=== PATIENT | female | born 1945 | race Caucasian/White ===

== ENCOUNTER → 2021-05-12 12:27 | Outpatient (CLI) | payer MEDICARE, SELFPAY | PROVIDERS: PCP Family Medicine; Visit Provider Nurse Practitioner | DX: Z20.822 Contact with and (suspected) exposure to COVID-19 (principal) | CPT/HCPCS: C9803; U0003; U0005 ==

== ENCOUNTER → 2021-07-10 12:46 | Outpatient (CLI) | payer MEDICARE, SELFPAY | PROVIDERS: PCP Anesthesiology; Visit Provider Nurse Practitioner | DX: Z20.822 Contact with and (suspected) exposure to COVID-19 (principal) | CPT/HCPCS: C9803; U0003; U0005 ==

== ENCOUNTER 2022-10-02 07:33 | Day surgery (SDC) | payer MEDICARE, SELFPAY ==
[2022-10-01 11:19] VITALS: BMI 23.0
[2022-10-02] VITALS (8 sets, daily range): BP systolic 106–151; BP diastolic 57–80; PULSE 70–81; RESP 17–18; TEMP 36.3–36.7; O2SAT 95–100
== END 2022-10-02 09:43 | disposition home or self-care (01) ==
PROVIDERS: PCP Anesthesiology; Visit Provider Ophthalmology
DX: H25.813 Combined forms of age-related cataract, bilateral (principal); Z79.899 Other long term (current) drug therapy
CPT/HCPCS: 66984; V2632

== ENCOUNTER 2022-10-16 08:27 | Day surgery (SDC) | payer MEDICARE, SELFPAY ==
[2022-10-12 13:58] VITALS: BMI 23.0
[2022-10-16 09:14] VITALS: BP 159/81; PULSE 70; RESP 18; TEMP 36.2; O2SAT 95
[2022-10-16 10:10] VITALS: BP 176/73; PULSE 67; RESP 17; O2SAT 99
[2022-10-16 10:15] VITALS: BP 152/67; PULSE 68; RESP 17; O2SAT 100
[2022-10-16 10:20] VITALS: BP 139/57; PULSE 65; RESP 17; O2SAT 100
[2022-10-16 10:25] VITALS: BP 126/93; PULSE 72; RESP 16; TEMP 36.3; O2SAT 98
[2022-10-16 10:37] VITALS: BP 126/93; PULSE 72; RESP 16; TEMP 36.3; O2SAT 98
== END 2022-10-16 10:37 | disposition home or self-care (01) ==
PROVIDERS: PCP Family Medicine; Visit Provider Ophthalmology
DX: H25.812 Combined forms of age-related cataract, left eye (principal); Z79.899 Other long term (current) drug therapy
CPT/HCPCS: 66984; V2632

== ENCOUNTER 2023-04-26 09:00 | Outpatient (RCR) | payer MEDICARE, SELFPAY | END 2023-04-26 09:05 | disposition home or self-care (01) | LOC: PT 09:00 | PROVIDERS: PCP Family Medicine; Visit Provider Family Medicine | DX: M40.209 Unspecified kyphosis, site unspecified (principal); M25.551 Pain in right hip; M25.552 Pain in left hip; M25.561 Pain in right knee; M25.562 Pain in left knee; M25.511 Pain in right shoulder; M25.512 Pain in left shoulder | CPT/HCPCS: 97110; 97163; 97530 ==

== ENCOUNTER 2024-06-12 07:44 | Outpatient (CLI) | payer MEDICARE, SELFPAY ==
[2024-06-12 08:45] VITALS: PULSE 70; PULSE 73
[2024-06-12] MEDS: ALBUTEROL 0.083% 2.5 MG/3 ML NEB IH (08:45)
[2024-06-12 09:40] LABS: Basophils # 0.1 K/mm3 (0-0.2); Basophils % 0.6 % (0.1-2.0); Eosinophils # 0.1 K/mm3 (0.0-0.4); Eosinophils % 1.2 % (0.1-12.0); Hematocrit 39.4 % (37.0-47.0); Hemoglobin 13.3 g/dL (12.2-16.2); Lymphocytes # 2.7 K/mm3 (0.7-4.5); Lymphocytes % 35.1 % (10-50); Mean Corpuscular HGB Conc 33.9 g/dL (31.8-35.4); Mean Corpuscular Hemoglobin 30.9 pg (27.0-31.2); Mean Corpuscular Volume 91.3 fl (81-99); Mean Platelet Volume 7.3 fl (7.4-10.4); Monocytes # 0.6 K/mm3 (0.1-1.0); Monocytes % 8.1 % (1.7-9.3); Neutrophils # 4.3 K/mm3 (1.8-7.8); Neutrophils % 54.9 % (37.0-80.0); Platelet Count 218 K/mm3 (142-424); Red Blood Count 4.31 M/mm3 (4.20-5.40); Red Cell Distribution Width 14.4 % (11.5-17.5); White Blood Count 7.8 K/mm3 (4.8-10.8)
[2024-06-19 04:06] LABS: D001-IgE D pteronyssinus 6.99 kU/L (Class IV); D002-IgE D farinae 4.72 kU/L (Class IV); E001-IgE Cat Dander <0.10 kU/L (Class 0); E005-IgE Dog Dander <0.10 kU/L (Class 0); E072-IgE Mouse Urine <0.10 kU/L (Class 0); G002-IgE Bermuda Grass <0.10 kU/L (Class 0); G006-IgE Timothy Grass 0.16 kU/L (Class 0/I); I006-IgE Cockroach, German <0.10 kU/L (Class 0); Immunoglobulin E, Total 150 IU/mL (6-495); M001-IgE Penicillium chrysogen <0.10 kU/L (Class 0); M002-IgE Cladosporium herbarum <0.10 kU/L (Class 0); M003-IgE Aspergillus fumigatus <0.10 kU/L (Class 0); M006-IgE Alternaria alternata <0.10 kU/L (Class 0); T001-IgE Maple/Box Elder <0.10 kU/L (Class 0); T003-IgE Common Silver Birch <0.10 kU/L (Class 0); T006-IgE Cedar, Mountain <0.10 kU/L (Class 0); T007-IgE Oak, White <0.10 kU/L (Class 0); T008-IgE Elm, American <0.10 kU/L (Class 0); T010-IgE Walnut <0.10 kU/L (Class 0); T011-IgE Maple Leaf Sycamore <0.10 kU/L (Class 0); T014-IgE Cottonwood <0.10 kU/L (Class 0); T015-IgE Ash, White <0.10 kU/L (Class 0); T022-IgE Pecan, Hickory 0.19 kU/L (Class 0/I); T070-IgE White Mulberry <0.10 kU/L (Class 0); W001-IgE Ragweed, Short <0.10 kU/L (Class 0); W011-IgE Thistle, Russian <0.10 kU/L (Class 0); W014-IgE Pigweed, Common <0.10 kU/L (Class 0); W018-IgE Sheep Sorrel <0.10 kU/L (Class 0)
== END 2024-06-12 23:59 | disposition home or self-care (01) ==
LOC: RT 07:46
PROVIDERS: PCP Family Medicine; Visit Provider Internal Medicine Pulmonary Disease
DX: R06.09 Other forms of dyspnea (principal); J30.9 Allergic rhinitis, unspecified
CPT/HCPCS: 36415; 82785; 85025; 86003; 94060; 94618; 94640; 94726; 94729; J7613

== ENCOUNTER 2025-02-22 10:50 | Outpatient (POV) | payer MEDICARE, SELFPAY ==
--- OUTSIDE RECORDS SUMMARY | 2025-02-09 16:15 | XMS_ITS | Encounter Summary ---
Author Organization Healthcare Address [address] 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 Discharge Disposition: Home or Self Care Social History Tobacco Use Types Packs/Day Years Used Date Smoking Tobacco: Never Smokeless Tobacco: Never Alcohol Use Standard Drinks/Week Comments Yes 0 (1 standard drink = 0.6 oz pur e alcohol) Every couple of months PHQ-2 Answer Date Recorded Patient Health Questionnaire-2 Score 0 01/07/2024 PHQ-2A Answer Date Recorded Patient Health Questionnaire-2 Score 1 07/09/2023 Comments Unknown Sex and Gender Information Value Date Recorded Sex Assigned at Not on file Legal Sex Female 7:52 PM EDT Gender Identity Not on file Sexual Orientation Not on file documented as of this encounter Medications at Time of Discharge Airsupra 90-80 MCG/ACT aerosol INHALE 2 PUFFS THREE TIMES DAILY NEEDED 08/30/2023 albuterol 108 (90 Base) MCG/ACT inhaler INHALE 1 PUFF EVERY 4 HOURS NEEDED. 07/04/2017 amitriptyline (Elavil) 10 MG tablet Amitriptyline HCl 10 MG Oral Tablet QTY: 90 tablet Days: 90 Refills: 0 Written: 09/22/24 Patient Instructions: 09/22/2024 Arnuity Ellipta 200 MCG/ACT aerosol powder Inhale 1 puff 1 (one) time each day. 06/22/2023 atorvastatin (Lipitor) 20 MG tablet Atorvastatin Calcium 20 MG Oral Tablet QTY: 90 tablet Days: 90 Refills: 0 Written: 10/10/24 Patient Instructions: 10/10/2024 Budeson-Glycopyr rol-Formoterol (Breztri Aerosphere) 160-9-4.8 MCG/ACT aerosol Breztri Aerosphere 160-9-4.8 MCG/ACT Inhalation Aerosol QTY: 33 Days: 90 Refills: 0 Written: 10/13/24 Patient Instructions: 06/21/2024 budesonide-formo terol (Symbicort) 80-4.5 MCG/ACT inhaler Inhale 2 puffs 2 (two) times a day. Rinse mouth with water after use to reduce aftertaste and incidence of candidiasis. Do not swallow. ibuprofen 800 MG tablet Take 1 tablet (800 mg) by mouth 3 (three) times a day. ipratropium-albu terol (Duo-Neb) 0.5-2.5 mg/3 mL nebulizer solution USE 3 ML IN NEBULIZER EVERY 6 HOURS NEEDED FOR SHORTNESS OF BREATH FOR WHEEZING 06/13/2024 ketoconazole (NIZOral) 2 % cream APPLY CREAM TOPICALLY TWICE DAILY TO AFFECTED AREA IN BETWEEN TOES AND ON FEET FOR 2-4 WEEKS UNTIL RESOLVED. REPEAT NEEDED ketoconazole (NIZOral) 2 % shampoo USE SHAMPOO TO THE SCALP THREE TIMES A WEEK. LATHER FOR 5 MINUTES THEN RINSE mirtazapine (Remeron) 15 MG tablet TAKE 1/2 (ONE-HALF) TABLET BY MOUTH NIGHTLY 04/10/2024 pravastatin (Pravachol) 20 MG tablet Take 1 daily 06/08/2020 sacubitril-valsa rtan (Entresto) 24-26 MG tablet Take 1 tablet by mouth 2 (two) times a day. carvedilol (Coreg) 12.5 MG tablet Take 1 tablet (12.5 mg) by mouth 2 (two) times a day with meals. 06/21/2020 documented as of this encounter Plan of Treatment Upcoming Encounters Date Type Department Care Team (Late st Contact Info) Description 04/27/2025 3:20 PM EDT Office Visit [facility] 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 Device successfully sensing intrinsic cardiac events and marking appropriately. Available impedance values demonstrate stable trend within normal limits. Available lead capture thresholds measured without significant change. Adequate safety margin programmed in device permanent outputs. Battery discharge trend stable, appropriate given total time in service. BIV pacing percentage >= 92%. EGMs reviewed against implant indication and diagnosis. It is worth noting that the vendor auto-threshold algorithm is not turned enabled or available on one or more leads. Reported thresholds of these leads with auto-threshold disabled are from an earlier dated in-clinic evaluation. Presenting rhythm is atrial sensed with biventricular paced response. Otherwise unremarkable. No new events since last clinic/remote report evaluation. Ericka Bhardwaj APRN CV IMPLANTABLE CARDIAC DEV ICE PROCEDURES Final Result documented in this encounter Visit Diagnoses Diagnosis ICD (implantable cardioverter-defibrillator) in place documented in this encounter Additional Health Concerns Assessment Noted Time A fall risk assessment has been complete d for the patient 01/07/2024 2:40 PM EDT A Body Mass Index follow-up plan has been documented for the patient 01/07/2024 3:22 PM EDT documented as of this encounter Care Teams Solar Thermal Installer Relationship Specialty Start Date End Date Elly Handy MD [address] [place] [address] PCP - General 12/16/20 Elena Hitchcock Dental Student Dental Deaf Teacher 05/15/24 Timo Becerra DMD [address] [place] [address] [place] [phone] Dentist Dentist 05/27/24 documented as of this encounter
--- OUTSIDE RECORDS SUMMARY | 2025-02-15 07:35 | XMS_ITS | Encounter Summary ---
Author Organization Healthcare Address [address] 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 Do not swallow. carvedilol (Coreg) 25 MG tablet Take 1 tablet by mouth 2 times a day with meals. 180 tablet 3 02/16/2025 ibuprofen 800 MG tablet Take 1 tablet [...] Description 04/27/2025 3:20 PM EDT Office Visit [facility] 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 [facility] EP - Remote CIED alert (non-scheduled) Name: Liz Davidson Date: 02/15/2025 : 1945 Age: 79 y.o. 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 Whiting 04/27/2025 See attached report for CIED details Provider Note: Message sent to EP RN to check for symptoms with patient. If BP can tolerate would like to increase her carvedilol to 25 mg BID. Elena Nugent PA-C Electrophysiology Ericka Bhardwaj APRN CV IMPLANTABLE CARDIAC DEV [...] documented as of this encounter Care Teams Soft Iron Inspector Relationship Specialty Start Date End Date Elly Handy MD [address] [place] [address] PCP - General 12/16/20 Elena Hitchcock Dental Student Dental Mill Operator 05/15/24 Timo Becerra DMD [address] [place] [address] [place] [phone] Dentist Dentist 05/27/24 documented as of this encounter
--- OUTSIDE RECORDS SUMMARY | 2025-02-22 11:04 | XMS_ITS | Referral Summary ---
Author Organization [facility] ([place], [place], [place], [place]) Address [address] [place] [address] Care Team Providers Care Peoplesoft Financials Name Role Phone Unavailable Primary Care Provider Unavailabl e Allergies Active Allergy Reactions Criticality Noted Date Comments Seasonal Allergies 07/07/2024 Medications carvediloL (COREG) 12.5 MG tablet Take 1 tablet (12.5 mg total) by mouth 2 (two) times daily. 4 Active Entresto 24-26 mg tablet Take 1 tablet by mouth 2 (two) times daily. Active pravastatin (PRAVACHOL) 20 MG tablet Take 1 tablet (20 mg total) by mouth daily. 4 Active ipratropium-alb uteroL (DUO-NEB) 0.5 mg-3 mg(2.5 mg base)/3 mL nebulizer solution USE 3 ML IN NEBULIZER EVERY 6 HOURS NEEDED FOR SHORTNESS OF BREATH FOR WHEEZING 4 Active Breztri Aerosphere 160-9-4.8 mcg/actuation HFAA Take 2 puffs by mouth 2 (two) times daily. 4 Active fluticasone propionate (FLONASE) 50 mcg/actuation nasal spray 2 sprays daily. 4 Active ibuprofen (MOTRIN) 800 MG tablet Take 1 tablet (800 mg total) by mouth. Active ketoconazole (NIZORAL) 2 % cream Apply topically. Active amitriptyline (ELAVIL) 10 MG tablet Take 1 tablet (10 mg total) by mouth daily. 4 Active Social History Tobacco Use Types Packs/Day Years Used Date Smoking Tobacco: Never Passive Smoke Exposure: Past Smokeless Tobacco: Never Tobacco Cessation:Counseling Given: Not Answered Alcohol Use Standard Drinks/Week Comments Never 0 (1 standard drink = 0.6 oz pur e alcohol) Family and Community Support Answer Abdifatah e Recorded Help with Day to Day Activities Not on file 06/11/2024 Feeling Lonely or Isolated Not on file 06/11 Educational Attainment Answer Date Kyle rded Speak language other than Yakut at home Not on file 06/11/2024 Want help with school or training Not on file 06/11/2024 Substance Use Answer Date Recorded Used prescription meds for non-medical reasons N ot on file 06/11/2024 Used illegal drugs past 12 months Not on file 06/11/2024 Comments No Sex and Gender Information Value Date Recorded Sex Assigned at Not on file Legal Sex Female 1:46 PM CDT Gender Identity Not on file Sexual Orientation Not on file Last Filed Vital Signs Vital Sign Reading Time Taken Comments Blood Pressure 128/61 07/07/2024 12:30 PM EST Pulse 74 07/07/2024 12:30 PM EST Temperature - - Respiratory Rate 20 07/07/2024 8:53 AM EST Oxygen Saturation 96% 07/07/2024 12:30 PM EST Inhaled Oxygen Concentration - - Weight 63.5 kg (140 lb) 07/07/2024 8:53 AM EST Height 160 cm (5' 3 ) 07/07/2024 8:53 AM EST Body Mass Index 24.8 07/07/2024 8:53 AM EST Plan of Treatment Not on file Insurance [facility] MEDICARE HMO
--- OUTSIDE RECORDS SUMMARY | 2025-02-22 11:04 | XMS_ITS | Clinical Summary ---
Author Organization [facility] Address [address] [place] [address] Care Team Providers Care Emergency Medicine Physician Name Role Phone Elly Handy MD Primary Care Provider [phone] Elena Hitchcock Unavailable Unavailable Timo Becerra DMD Unavailable [phone] Allergies Active Allergy Reactions Criticality Noted Date Comments Azithromycin Other - please docum ent in the comment field Low 07/09/2023 Violently ill, cramps, back pain. Onion Hives Medium 01/07/2024 Medications albuterol 108 (90 Base) MCG/ACT inhaler INHALE 1 PUFF EVERY 4 HOURS NEEDED. 07/04/20 17 Active pravastatin (Pravachol) 20 MG tablet Take 1 daily 06/08/20 20 Active sacubitril-chetan sartan (Entresto) 24-26 MG tablet Take 1 tablet by mouth 2 (two) times a day. Active Arnuity Ellipta 200 MCG/ACT aerosol powder Inhale 1 puff 1 (one) time each day. 06/22/20 23 Active budesonide-for moterol (Symbicort) 80-4.5 MCG/ACT inhaler Inhale 2 puffs 2 (two) times a day. Rinse mouth with water after use to reduce aftertaste and incidence of candidiasis. Do not swallow. Active Airsupra 90-80 MCG/ACT aerosol INHALE 2 PUFFS THREE TIMES DAILY NEEDED 08/30/19 24 Active ibuprofen 800 MG tablet Take 1 tablet (800 mg) by mouth 3 (three) times a day. Active ketoconazole (NIZOral) 2 % cream APPLY CREAM TOPICALLY TWICE DAILY TO AFFECTED AREA IN BETWEEN TOES AND ON FEET FOR 2-4 WEEKS UNTIL RESOLVED. REPEAT NEEDED Active mirtazapine (Remeron) 15 MG tablet TAKE 1/2 (ONE-HALF) TABLET BY MOUTH NIGHTLY 04/10/20 24 Active amitriptyline (Elavil) 10 MG tablet Amitriptyline HCl 10 MG Oral Tablet QTY: 90 tablet Days: 90 Refills: 0 Written: 09/22/24 Patient Instructions: 09/22/19 25 Active Budeson-Glycop yrrol-Formoter ol (Breztri Aerosphere) 160-9-4.8 MCG/ACT aerosol Breztri Aerosphere 160-9-4.8 MCG/ACT Inhalation Aerosol QTY: 33 Days: 90 Refills: 0 Written: 10/13/24 Patient Instructions: 06/21/20 24 Active atorvastatin (Lipitor) 20 MG tablet Atorvastatin Calcium 20 MG Oral Tablet QTY: 90 tablet Days: 90 Refills: 0 Written: 10/10/24 Patient Instructions: 10/11/19 25 Active ipratropium-al buterol (Duo-Neb) 0.5-2.5 mg/3 mL nebulizer solution USE 3 ML IN NEBULIZER EVERY 6 HOURS NEEDED FOR SHORTNESS OF BREATH FOR WHEEZING 06/13/20 24 Active ketoconazole (NIZOral) 2 % shampoo USE SHAMPOO TO THE SCALP THREE TIMES A WEEK. LATHER FOR 5 MINUTES THEN RINSE Active carvedilol (Coreg) 25 MG tablet Take 1 tablet by mouth 2 times a day with meals. 180 tablet 3 02/17/20 25 Active carvedilol (Coreg) 12.5 MG tablet Take 1 tablet (12.5 mg) by mouth 2 (two) times a day with meals. 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 Pulmonary emphysema 12/18/2024 Allergic rhinitis 12/18/2024 Abnormal computed tomography scan 12/18/2024 Chest pain 05/25/2024 Lower back pain 02/17/2024 Severe persistent asthma 05/27/2023 Hip pain 04/15/2023 Chronic obstructive pulmonary disease 01/22/2023 Hyperlipidemia 08/20/2022 Cough variant asthma 07/16/2022 Post-acute COVID-19 syndrome 07/12/2022 Fatigue 06/20/2021 Weakness of both lower extremities 06/20/2021 Implantable cardioverter-defibrillator (ICD) in situ 05/20/2018 Visit for wound check 07/25/2017 Cardiomyopathy 07/04/2017 Left bundle branch block 07/04/2017 Encounters Date Type Department Care Team Description 02/15/2025 7:35 AM EDT - 02/15/2025 11:59 PM EDT Hospital Encounter Cardiac Imaging [address] [place] [address] ICD (implantable cardioverter-defibri llator) in place Discharge Disposition: Home or Self Care 02/15/2025 Telephone [facility] [address] [address] Ofe Raman RN 02/15/2025 Travel 02/09/2025 4:15 PM EDT - 02/09/2025 11:59 PM EDT Hospital Encounter Cardiac Imaging [address] [place] [address] ICD (implantable cardioverter-defibri llator) in place Discharge Disposition: Home or Self Care 02/09/2025 Travel 12/24/2024 Telephone [facility] [address] [place] [address] Genaro Whiting MD [facility] - Patient Message from Last 3 Months Family History Medical History Relation Name Comments Heart attack Father Heart failure Father Heart Problem Mother Hyperlipidemia Mother Hypertension Mother Lung disease Mother Relation Name Status Comments Father Mother Social History Tobacco Use Types Packs/Day Years Used Date Smoking Tobacco: Never Smokeless Tobacco: Never Tobacco Cessation:Counseling Given: Not Answered Alcohol Use Standard Drinks/Week Comments Yes 0 [...] Sign Reading Time Taken Comments Blood Pressure 125/69 05/21/2024 9:07 AM EDT Pulse 81 05/21/2024 9:07 AM EDT Temperature 36.8 C (98.2 F) 08/13/2023 2:20 PM EST Respiratory Rate 20 08/13/2023 1:40 PM EST Oxygen Saturation 92% 01/07/2024 2:38 PM EDT Inhaled Oxygen Concentration - - Weight 65.5 kg (144 lb 6.4 oz) 01/07/2024 2:38 P M EDT Height 160 cm (5' 3 ) 01/07/2024 2:38 PM EDT Body Mass Index 25.58 01/07/2024 2:38 PM EDT Plan of Treatment Upcoming Encounters Date Type Department Care Team (Late st Contact Info) Description 04/27/2025 3:20 PM EDT Office Visit [facility] [address] [facility] [place] [address] Genaro Whiting MD [address] [place] [address] Health Maintenance Due Date Last Done Comments [facility]-Bone Density Scan 1945 [facility]-Hepatitis C Screening 1945 [facility]-Medicare Annual Wellness (AWV) 1945 [facility]-/Child/Adol SDOH Screenings 1945 [facility]- SDOH Screenings 1963 [facility]-Adult SDOH Screenings 1963 [facility]-DTaP,Tdap,and Td Vaccines (1 - Tdap) 1964 Dental Oral Exam 11/14/2024 05/15/2024 Dental Prophylaxis 11/20/2024 05/21/2024 [id number] Vaccine ( season) 2024 06/10/2024, 05/31/2021, 10/12/2020, Additional history exists [facility]-Depression Screening 01/06/2025 01/07/2024 [facility]-Influenza Vaccine (#1) 04/05/202506/10, 05/17/2021, 05/12/2020, Additional history exists Dental X-Ray: Bitewings 05/16/2025 05/15/2024 Dental X-Ray: Full Mouth 05/16/2027 05/15/2024 [facility]-Pneumococcal Vaccine: 50+ Years Completed 12/25/2019, 10/14/2018 [facility]-Zoster Vaccines Completed 09/11/2021, [facility]-RSV Vaccine: 60+ Years or Completed 08/15/2023 [facility]-Obesity Intervention Completed 01/07/2024, 12/2022 FIT-DNA Discontinued 07/08/2024 [facility]-Colorectal Cancer Screening Discontinued CT Colonography Discontinued Colonoscopy Discontinued FIT Discontinued FOBT Discontinued HPV Vaccines Aged Out No longer eligi ble based on patient's age to complete this topic Sigmoidoscopy Discontinued [facility]-HIB Vaccines Aged Out No longer e ligible based on patient's age to complete this topic [facility]-Hepatitis A Vaccines Aged Out No longer eligible based on patient's age to complete this topic [facility]-IPV Vaccines Aged Out No longer e ligible based on patient's age to complete this topic [facility]-Rotavirus Vaccines Aged Out No lo nger eligible based on patient's age to complete this topic Medical Devices Implanted Type Area Brine Plant Operator Device Identifier Shelf Expiration Date Model / Serial / Lot [id number] Solia S 53 [id number] Lead [id number] SOLIA S 53 / [id number] / [id number] Plexa S65 Mri [id number] Lead Chest 402-266 PLEXA S65 MRI / [id number] / [id number] Sentus Qp L [id number] Lead [phone] SENTUS QP L / [id number] / Rv Lead Protego S 60 Implanted:07/17 (Quantity not on file) Lead Chest / [id number] / [id number] Ilivia 7 Hf-T Qp Df4 Isf Pro Mri [id number] Implanted:07/17 (Quantity not on file) Pacemaker Chest [id number] ILIVIA 7 HF-T QP DF4 ISF PRO MRI / [id number] / Procedures Procedure Name Priority Date/Time Associated Diagnosis Comments CARDIAC DEVICE CHECK CHECK - REMOTE ALERT Routine 02/15/2025 7:37 AM EDT 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 CARDIAC DEVICE CHECK - REMOTE - ICD Routine 02/09/2025 4:50 PM EDT 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 [facility] EP - Remote CIED alert (non-scheduled) Name: Liz Murcia Stuart Date: 02/15/2025 : 1945 Age: 79 y.o. 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 Ericka Oconnell Douglasdaniloana ACEVEDO CV IMPLANTABLE CARDIAC DEV ICE PROCEDURES Final Result from Last 3 Months Insurance Care Teams Emergency Medicine Physician Relationship Specialty Start Date End Date Elly Handy MD [address] [place] [address] PCP - General 12/16/20 Elena Hitchcock Dental Student Dental Factory Maintenance Technician 05/15/24 Timo Becerra, DMD [address] [place] [phone] Dentist Dentist 05/27/24
--- OUTSIDE RECORDS SUMMARY | 2025-02-22 11:04 | XMS_ITS | Continuity of Care Document ---
Author Organization [place] - [facility] - [facility]ra Address [address] [place] [address] Care Team Providers Care Healthcare Consulting Manager Name Role Phone EVELYNTAMIKO Primary Care Provider [phone] Assessment Encounter Date Assessment Date Assessment LastModified by Organization Details LastModified Time 12/24/2024 12/24/2024 trial of gemtessa or myrbetriq but first have requested urine sample for testing, pt is unable to give this today and was given supplies to collect and bring in check labs as noted discussed benefit of supplemental o2 trial, pt declined currently continue current meds trial of nystatin for mouth and tongue irritation, add spacer for breztri [email or web address] Not available 12/24/2024 12:42:35 Plan of Treatment Reminders Order Date Submit Date Provider Last Modified By Organization Details Last Modified Time Details Appointments LAB ONLY 15 2024 08:30A M GFP - Nurse Not available Not available Not available OV EST 15 2024 01:15P M Raza Foreman MD Not available Not available Not available Medicare Annual Wellness 30min 2025 08:30A M Tamiko Elliott MD Not available Not available Not available Lab vitamin D, 25-hydrox y, total, serum 2024 025 [facility] [address] [place] [address], [address], 12/25/2024 10:11:13 lipid panel, serum 2024 025 [facility] [address] [place] [address] [place], [address], 12/25/2024 10:11:11 CMP, serum or plasma 2024 025 [facility]), [address] [place], [address], 12/25/2024 10:11:10 CBC w/ auto diff 2024 025 [facility]), [address] [place], [address], 12/25/2024 10:11:09 cobalamin and folate panel, serum 2024 025 [facility]), [address] [place], [address], 12/25/2024 10:11:13 vitamin D, 25-hydrox y, total, serum [email or web address]), [address] [place], [address], 01/25/2025 08:58:41 magnesium , serum or plasma 2024 025 [facility]), [address] [place], [address], 12/25/2024 10:11:14 thyroid panel, serum 2024 025 [facility]), [address] [place], [address], 12/25/2024 10:11:12 Referral None recorded. Procedures None recorded. Surgeries None recorded. Imaging None recorded. Medication Orders amitripty line 10 mg tablet 2024 025 [facility]76, [address], [place], [address], 12/24/2024 08:43:41 nystatin 100,000 unit/mL oral suspensio n 2024 025 [facility] 591, [address] [place], [address], 12/24/2024 08:43:42 atorvasta tin 20 mg tablet 2024 025 [facility], [address] [place], [address], 12/24/2024 08:43:42 Patient TargetsNo targets recorded. Patient InstructionsNo instructions recorded. Reason for Referral None Reported. Problems Name Problem SNOMED Code Status Onset Date Resolution Date Notes Provider Name and Address Organization Details Recorded Time Requires vaccination 273927858 Active Not Available [facility] 21:54:52 Vitamin D deficiency 45013566 Active Not Available [facility] 21:54:52 Pain of wrist region 70928229 Active Not Available [facility] 21:54:52 Essential hypertension 29296227 Active Not Available [facility] 21:54:52 Cardiac defibrillato r in situ 736444372 Active Not Available [facility] 21:54:52 Osteoporosis 44556043 Active Not Available [facility] 21:54:52 Incontinence 77971760 Active Not Available [facility] 21:54:52 Allergic rhinitis 87576998 Active Not Available [facility] 3 21:54:52 Low density lipoprotein cholesterol above reference range 448635123 Active Not Available [facility] 21:54:52 Automatic implantable cardiac defibrillato r in situ 085913446 Active Not Available [facility] 21:54:52 Chronic rhinitis 57235810 Active Not Available [facility] 3 21:54:53 Scalp itchy 865193306 Active Not Available [facility] 3 21:54:52 Sinusitis 87436936 Active Not Available [facility] 3 21:54:52 Disorder of carotid artery 426784595 Active Not Available [facility] 3 21:54:52 Pulmonary emphysema 13077912 Active Not Available [facility] 3 21:54:53 Fatigue 68810683 Active Not Available [facility] 3 21:54:52 Cardiomyopat hy 53602614 Active Not Available [facility] 3 21:54:52 Uncomplicate d mild persistent asthma 852775794 Active Not Available [facility] 3 21:54:52 Dyspnea on exertion 10046672 Active Not Available [facility] 3 21:54:52 Left bundle branch block 86398686 Active Not Available [facility] 3 21:54:52 Left heart failure 64067035 Active Not Available [facility] 3 21:54:52 Computed tomography result abnormal 365834611 Active Not Available [facility] 3 21:54:52 Post-acute COVID-19 3563155927 Active 2021 Not Available [facility] 3 21:54:52 Cough variant asthma 961775966 Active 2021 Not Available [facility] 3 21:54:52 Hyperlipidem ia 81501942 Active 2022 Not Available [facility] 3 21:54:52 Chronic obstructive pulmonary disease 54956080 Active 2022 Not Available [facility] 3 21:54:52 Severe persistent asthma 489421326 Active 2022 Not Available [facility] 3 21:54:52 Chest pain 66780128 Active 2023 Raza Foreman MD [address] [facility], [place], [address] , [facility] - [facility] - [place] & [place] 4 14:32:07 Problem Notes None recorded. Procedures Surgical History Date Name Laterality Status Provider Name and Address Organization Details Recorded Time 08/20/19 25 Date of Last Colonoscopy completed Michelle Crawford [place] - [facility] & [place] 08/20/2024 12:42:05 07/15/20 23 Most Recent Bone Density completed Nolvia Lozano [place] - [facility] - [place] & [place] 05/16/2024 10:26:32 07/15/20 23 Most Recent Mammogram completed Nolvia Calvin [facility] & [place] 05/16/2024 10:26:43 01/28/20 18 Feces-based colorectal cancer DNA screening completed Nolvia Calvin [facility] & [place] 05/16/2024 10:35:06 07/17/20 17 cardiac pacemaker procedure completed Debra Calvin [facility] & [place] 06/07/2023 08:48:14 08/05/19 17 Pacemaker/Defib rillator completed Michelle Yvette JM Calvin [facility] & [place] 07/15/2024 11:18:06 cataract surgery completed Chevy Katz JM Calvin [facility] & [place] 01/22/2023 13:01:06 excision of lesion of skin [facility] & [place] 05/16/2024 10:28:08 Imaging Results None recorded. Procedure Notes None recorded. 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 Serial Number Lot Number Status Provider Name and Address Organization Details Recorded Time ICD (implantab le cardiovert er-defibri llator) FDA Y Nolvia gilbert, [place] - JOSE LUISNT [facility] & [place] 05/16/2024 10:25:43 Allergies Allergen ID Allergen Name Allergen Category Reaction Reaction Severity Criticality Documentation Date Start Date Code Code System Note Provider Name and Address Organization Details Recorded Time 187686 Zithromax medicatio n vomiting Not available Not available 06/07/2023 99086 4 RxNorm JM Huggins [facility] & [place] 3 08:47:17 035550 onion extract food,medi cation hives Not available Not available 05/16/2024 22443 69 RxNorm criti calit y mediu m Nolvia Blake null, JM [facility] & [place] 4 10:28:46 52507 azithromy aletha medicatio n rash mild low 06/06/2022 96000 RxNorm Nlovia Treeamer null, J[place] - [facility] & [place] 4 10:28:22 13462 umeclidin ium bromide medicatio n other mild Not available 06/06/2022 49541 12 RxNorm Not Available [facility] 2 08:38:33 93513 doxycycli ne Not available palpitati ons mild Not available 06/06/2022 3640 RxNorm Not Available [facility] 3 15:19:34 Medications Name Sig Start Date Stop Date Status Note LastModified by Organization Details LastModified Time amoxicillin 500 mg capsule TAKE 1 CAPSULE BY MOUTH EVERY 12 HOURS FOR 10 DAYS 06/06 completed Not Available Not Available Not Available carvedilol 25 mg tablet TAKE 1 TABLET BY MOUTH TWICE DAILY WITH MEALS active Not Available Not Available No t Available nystatin 100,000 unit/mL oral suspension TAKE 5 ML BY MOUTH 4 TIMES DAILY FOR 10 DAYS active Not Available Not Available No t Available carvedilol 6.25 mg tablet TAKE 1 TABLET BY MOUTH TWICE DAILY WITH FOOD 06/06 completed Not Available Not Available Not Available atorvastati n 20 mg tablet TAKE 1 TABLET BY MOUTH ONCE DAILY active Not Available Not Available No t Available carvedilol 12.5 mg tablet TAKE 1 TABLET BY MOUTH TWICE DAILY DIRECTED active Not Available Not Available No t Available ipratropium 0.5 mg-albutero l 3 mg (2.5 mg base)/3 mL nebulizatio n soln USE 3 ML IN NEBULIZER EVERY 6 HOURS NEEDED FOR SHORTNESS OF BREATH FOR WHEEZING active Not Available Not Available No t Available ketoconazol e 2 % shampoo USE SHAMPOO TO THE SCALP THREE TIMES A WEEK. LATHER FOR 5 MINUTES THEN RINSE 07/15 completed Not Available Not Available Not Available ibuprofen 800 mg tablet TAKE 1 TABLET BY MOUTH THREE TIMES DAILY 12/24 completed Not Available Not Available Not Available ofloxacin 0.3 % eye drops INSTILL 1 DROP TO OPERATEIV E EYE 4 TIMES A DAY FOR 7 DAYS 01/22 completed Not Available Not Available Not Available benzonatate 200 mg capsule Take 1 capsule 3 times a day by oral route for 7 days. 08/20 completed Not Available Not Available Not Available hydrocodone 5 mg-acetamin ophen 325 mg tablet TAKE 1 TO 2 TABLETS BY MOUTH EVERY 4 TO 6 HOURS DO NOT EXCEED 6 TABLETS IN A 24 HOUR PERIOD 06/06 completed Not Available Not Available Not Available promethazin e 12.5 mg tablet TAKE 1 TABLET BY MOUTH EVERY 6 TO 8 HOURS NEEDED 08/20 completed Not Available Not Available Not Available prednisone 20 mg tablet Take 2 tablets every day by oral route for 5 days. 08/20 completed Not Available Not Available Not Available ketorolac 0.5 % eye drops STARTING 3 DAYS BEFORE SURGERY USE 1 DROP IN THE OPERATIVE EYE 4 TIMES A DAY FOR 10 DAYS, THEN DECREASE TO TWICE DAILY FOR 14 DAYS 01/22 completed Not Available Not Available Not Available prednisolon e acetate 1 % eye drops,suspe nsion USE 1 DROP TO OPERATIVE EYE 4 TIMES A DAY FOR 7 DAYS, THEN DECREASE TO TWICE A DAY FOR 14 DAYS 01/22 completed Not Available Not Available Not Available amitriptyli ne 10 mg tablet TAKE 1 TABLET BY MOUTH ONCE DAILY active Not Available Not Available No t Available sulfacetami de sodium 10 % eye drops INSTILL 2 DROPS INTO AFFECTED EYE(S) EVERY 3 HOURS FOR 5 DAYS 08/20 completed Not Available Not Available Not Available montelukast 10 mg tablet TAKE 1 TABLET BY MOUTH ONCE DAILY FOR 90 DAYS 06/06 completed Not Available Not Available Not Available pravastatin 20 mg tablet Take 1 tablet by mouth once daily active Not Available Not Available No t Available furosemide 20 mg tablet TAKE 1 TABLET BY MOUTH ONCE DAILY NEEDED active Not Available Not Available No t Available mirtazapine 15 mg tablet TAKE 1/2 (ONE-HALF ) TABLET BY MOUTH NIGHTLY 06/23 completed Not Available Not Available Not Available methylpredn isolone 4 mg tablets in a dose pack TAKE DIRECTED FOR 6 DAYS 06/06 completed Not Available Not Available Not Available albuterol sulfate HFA 90 mcg/actuati on aerosol inhaler INHALE 2 PUFFS BY MOUTH EVERY 4 HOURS active Not Available Not Available No t Available ketoconazol e 2 % topical cream APPLY CREAM TOPICALLY TWICE DAILY TO AFFECTED AREA IN BETWEEN TOES AND ON FEET FOR 2-4 WEEKS UNTIL RESOLVED. REPEAT NEEDED active Not Available Not Available No t Available fluticasone propionate 50 mcg/actuati on nasal spray,suspe nsion USE 2 SPRAY(S) IN EACH NOSTRIL ONCE DAILY active Not Available Not Available No t Available candesartan 8 mg tablet TAKE 1 TABLET BY MOUTH ONCE DAILY 06/06 completed Not Available Not Available Not Available loratadine 10 mg tablet Take 1 {tablet} by oral route. 06/18 completed Not Available Not Available Not Available cyclobenzap rine 5 mg tablet Take 1 tablet every day by oral route as needed for 5 days. 03/12 completed Not Available Not Available Not Available nitrofurant oin monohydrate /macrocryst als 100 mg capsule TAKE 1 CAPSULE BY MOUTH EVERY 12 HOURS FOR 7 DAYS 01/18 completed Not Available Not Available Not Available chlorhexidi ne gluconate 0.12 % mouthwash RINSE WITH 15ML FOR 30 SECONDS AND SPIT, USE TWICE DAILY. 08/20 completed Not Available Not Available Not Available Symbicort 160 mcg-4.5 mcg/actuati on HFA aerosol inhaler Inhale 2 puffs twice a day by inhalatio n route for 90 days. 06/23 completed Not Available Not Available Not Available sodium,pota ssium,mag sulfates 17.5 gram-3.13 gram-1.6 gram oral soln Take 6 ounces twice a day by oral route as directed for 1 day, for colonosco py prep. 12/24 completed Not Available Not Available Not Available Breo Ellipta 100 mcg-25 mcg/dose powder for inhalation Inhale 1 puff every day by inhalatio n route for 30 days. 03/12 completed Not Available Not Available Not Available Arnuity Ellipta 200 mcg/actuati on powder for inhalation INHALE 1 PUFF BY MOUTH ONCE DAILY 06/23 completed Not Available Not Available Not Available Arnuity Ellipta 100 mcg/actuati on powder for inhalation INHALE 1 PUFF BY MOUTH ONCE DAILY FOR 30 DAYS 06/18 completed Not Available Not Available Not Available Entresto 24 mg-26 mg tablet TAKE 1 TABLET BY MOUTH TWICE DAILY active Not Available Not Available No t Available Breztri Aerosphere 160 mcg-9mcg-4. 8mcg/actuat ion HFA aerosol inhaler INHALE 2 PUFFS BY MOUTH TWICE DAILY active Not Available Not Available No t Available Airsupra 90 mcg-80 mcg/actuati on HFA aerosol inhaler INHALE 2 PUFFS THREE TIMES DAILY NEEDED 07/15 completed Not Available Not Available Not Available Vitals Date Recorded Body height Body mass index (BMI) Body weight Body temperature Oxygen saturation Oxygen saturation in Arterial blood by Pulse oximetry Heart rate Systolic And Diastolic Provider Name and Address Organization Details Last Updated DateTime 5 160.02 cm 25 kg/m2 81458.5 2 g 97.1 [degF] 94 % 94 % 65 /min 124/72 mm[Hg] Michelle Crawford [facility] & [place] 5 08:11:54 Social History Question Answer Notes LastModified by Organizat ion Details LastModified Time Tobacco Smoking Status Never Smoker Soumya gilbert, [facility] & [place] 06/06/2022 11:26:08 Do You Have An Advance Directive? Yes Information not available 07/15/2024 Are You Blind Or Do You Have Difficulty Seeing? No [email or web address] Information not available 07/15/2024 What Is Your Level Of Caffeine Consumption? Moderate [email or web address] Information not available 05/25/2024 In General, Would You Say Your Health Is Fair Information not available 06/23/2024 How Would You Describe The Condition Of Your Mouth And Teeth including False Teeth Or Dentures? Poor [email or web address] Information not available 06/23/2024 Each Night, How Many Hours Of Sleep Do You Usually Get? 6-7 Hours [email or web address] Information not available 06/23/2024 Do You Snore Or Has Anyone Told You That You Snore? Yes [email or web address] Information not available 06/23/2024 In The Past 7 Days, How Often Have You [place] Sleepy During The Daytime? Sometimes [email or web address] Information not available 06/23/2024 Do You Have Chronic Pain? Yes [email or web address] Information not available 06/23/2024 If Yes, Location Of Pain Hips, Back [email or web address] Information not available 06/23/2024 In The Past 7 Days, How Would You Rate Your Pain? Moderate Pain(4-6) [email or web address] Information not available 06/23/2024 Are You In A Pain Management Program? Yes [email or web address] Information not available 06/23/2024 Do You Take Opioids For Your Pain? No [email or web address] Information not available 06/23/2024 How Often Is Stress A Problem For You In Handling Such Things As: Your Health, Your Finances, Your Family And Social Relationships, Your Work? Never Or Rarely [email or web address] Information not available 06/23/2024 How Often Do You Get The Social And Emotional Support You Need: Always [email or web address] Information not available 06/23/2024 In The Past 7 Days, Did You Need Help From Others To Take Care Of Things Such As Laundry And Housekeep- Ing, Banking, Shopping, Using The Telephone, Food Preparation, Transportation, Or Taking Your Own Medications? No [email or web address] Information not available 06/23/2024 Do You Live Alone? No [email or web address] Information not available 06/23/2024 Does Your Home Have Any Fall Risks (un-level Floors, Unfastened Rugs, Poor Lighting, Etc)? No [email or web address] Information not available 06/23/2024 What Was The Date Of Your Most Recent Tobacco Screening? 07/15/2024 [email or web address] Information not available 07/15/2024 Are You Passively Exposed To Smoke? No [email or web address] Information not available 07/15/2024 Has Tobacco Cessation Counseling Been Provided? No [email or web address] Information not available 06/06/2022 Sex: Unknown Functional Status Question Answer Note LastModified by Organizat ion Details LastModified Time Do you use any illicit or recreational drugs? No [email or web address] Information not available 06/06/2022 Do you or have you ever used any other forms of tobacco or nicotine? No Information not available 06/06/2022 What is your level of alcohol consumption? None [email or web address] Information not available 06/06/2022 What is your exercise level? Moderate [email or web address] Information not available 07/15/2024 Mental Status Question Answer Note LastModified by Organization D etails LastModified Time Do you feel stressed (tense, restless, nervous, or anxious, or unable to sleep at night)? [id number] Information not available 07/15/2024 Family History Relationship Description Onset Age of this Age Resolved Age Notes LastModified by Organization Details LastModified Time Father Myocardial infarction [email or web address] Not available 10/2022 08:48:35 Father Heart failure [email or web address] Not available 2023 11:16:29 Mother Malignant neoplasm of lung [email or web address] Not available 2023 11:16:29 Mother Essential hypertension [email or web address] Not available 06/2024 11:16:29 Mother Myocardial infarction [email or web address] Not available 10/2022 08:49:33 Mother Hyperlipidem ia [email or web address] Not available 2023 11:16:29 Medical History Condition Response Allergies/Hayfever Y Heart Problems Y Other Y COPD Y Vision or Eye Problems Y Arthritis Y Cancer Y Asthma Y High Cholesterol Y Heart Disease Y Pulmonary Embolism Y Hypertension Y Osteoporosis Y Gynecological History Statement/Question Response Most Recent Mammogram 07/15/2023 Date of Last Colonoscopy 08/20/2024 Most Recent Bone Density 07/15/2023 Sexually Active? N Obstetrics History GPAL:G 0 P 0 0 0 0 Immunizations Vaccine Type Date Status Note Provider Nam e and Address Organization Details Recorded Time Influenza, adjuvanted, quadrivalent, PF 2 completed Ivy Pathak MD [address] [facility] [facility], [place], [address], [facility] & [place] 07/12/2022 14:03:53 zoster recombinant 2 completed Not Available [facility] 07/17/2023 21:54:53 Influenza, injectable,quadriva lent, preservative free, pediatric 9 completed Not Available [facility] 07/17/2023 21:54:53 Influenza, split virus, quadrivalent, PF 0 completed Not Available [facility] 07/17/2023 21:54:53 Influenza, split virus, quadrivalent, PF 1 completed Not Available [facility] 07/17/2023 21:54:53 Pneumococcal conjugate PCV 13 9 completed Not Available [facility] 07/17/2023 21:54:53 pneumococcal polysaccharide PPV23 0 completed Not Available [facility] 07/17/2023 21:54:53 zoster recombinant 1 completed Not Available [facility] 07/17/2023 21:54:53 Influenza, MDCK, quadrivalent, preservative 8 completed Not Available [facility] 07/17/2023 21:54:53 Influenza, split virus, trivalent, PF 6 completed Not Available [facility] 07/17/2023 21:54:53 Influenza, adjuvanted, trivalent, PF 7 completed Not Available [facility] 07/17/2023 21:54:53 COVID-19, mRNA, LNP-S, PF, 100 mcg/0.5mL dose or 50 mcg/0.25mL dose 1 completed Not Available [facility] 07/17/2023 21:54:53 COVID-19, mRNA, LNP-S, PF, 100 mcg/0.5mL dose or 50 mcg/0.25mL dose 1 completed Not Available [facility] 07/17/2023 21:54:53 COVID-19, mRNA, LNP-S, PF, 100 mcg/0.5mL dose or 50 mcg/0.25mL dose 1 completed Not Available [facility] 07/17/2023 21:54:53 Influenza, adjuvanted, quadrivalent, PF 3 completed Ivy Pathak MD [address] [facility] [facility], [place], [address], [place] - [facility] - [place] & [place] 05/27/2023 10:54:09 RSV, recombinant, protein subunit RSVpreF, adjuvant reconstituted, 0.5 mL, PF 4 completed Michelle gilbert [place] - [facility] - [place] & [place] 06/23/2024 09:32:28 COVID-19, mRNA, LNP-S, PF, areli-sucrose, 30 mcg/0.3 mL 4 completed Michelle Crawford null, [place] - [facility] - [place] & [place] 06/23/2024 09:32:28 Influenza, high-dose, trivalent, PF 4 completed Michelle Crawford null, [place] - [facility] - [place] & [place] 06/23/2024 09:32:28 Past Encounters Encounter ID Performer Location Encounter Start Date Encounter Closed Date Diagnosis/Indication Diagnosis SNOMED-CT Code Diagnosis ICD10 Code Diagnosis Note [id number] Tamiko Elliott MD [facility] - [facility] [address] [place] [address] 12/24/2024 07:56:46 12/24/2024 09:11:21 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 Vitamin D deficiency 347 61176 E55.9 Fatigue 26021885 R53.82 Health Concerns Section Related Observation LastModified by Organization Detai ls LastModified Time None Recorded Concern Status LastModified by Organization Details LastModified Time None Recorded Payers Encounter Date Sequence Insurance Name Policy Number Policy Mueller Covered Member ID Mueller Member ID Guarantor Name 12/24/2024 1 [employer] (MEDICARE REPLACEMENT/A DVANTAGE - PPO) Liz Davidson [id number] Liz Davidson Notes Date Note Type Note Provider Name and Address Organization Details Recorded Time 12/24/2024 text/html SHe is here for f/uShe follows with cardiology for her cardiomyopathy. She notes that she is struggling with fatigue and has to take a nap during the day. She is on entresto but didn't feel a big difference when she started it. She notes that she struggles due to her legs feeling weak. SHe does have some mild swelling in her ankles occasionally bu tnot daily and this is minimal when present. She does have hx of low O2 and has been hesitant to use supplemental oxygen in the past. She does feel that her amitriptyline does help with her chronic itching/neuroderm and would like a refill. She has HLP and is on statin and due for refill on this. She has been having increase in urinary frequency with some mild incontinence lately. She denies dysuria, urine odor, blood in urine. She isn't sure if she has had issues with constipation. She doesn't have abdominal pain. She is on breztri for her lungs with hx of question of asthma vs copd and is following with pulmonology with this. She sees Dr. Lara in [place]. Tamiko Elliott MD [address], [place], [address], [place] - [facility] - [place] & [place] 12/24/2024 12:42:46 OBGyn Episode No OBEpisode recorded.
--- OUTSIDE RECORDS SUMMARY | 2025-02-22 11:04 | XMS_ITS | Encounter Summary ---
Author Organization [facility] Address [address] [place] [address] Care Team Providers Care Stonecutter Apprentice Hand Name Role Phone Elly Handy MD Primary Care Provider [phone] Elena Hitchcock Unavailable Unavailable Timo Becerra DMD Unavailable [phone] Encounter Details Date Type Department Care Team (Late st Contact Info) Description 02/15/2025 Telephone [facility] [address] [place] [address] Ofe Raman, RN Social History Tobacco Use Types Packs/Day Years [...] on file documented as of this encounter Miscellaneous Notes * Telephone Encounter - Ofe Raman RN - 02/16/2025 10:40 AM EDT SW pt- She is amendable to plan and will monitor BP for a week and call me with readings. No further questions at this time. * Telephone Encounter - Ofe Raman RN - 02/15/2025 3:43 PM EDT SW pt- she states she's been having Tightness in my chest around my heart Vague sense of pain, but not sharp and feeling really fatigued. Off and on for a couple of months. Says it comes and goes . She does not monitor BP regularly. I have advised her to start keeping a log. * Telephone Encounter - Ofe Raman RN - 02/15/2025 3:43 PM EDT ----- Message from JULIUS [place] sent at 02/15/2025 2:23 PM EDT ----- Ren Thakur, Could you please call Ms. Davidson and see if she's been feeling alright? Her device has shown an increase in PVCs which is causing her to pace less, and we want her to pace since it's a BiV ICD. I'd like to know if BP is ok at home. As long as BP is not low frequently, I'd like to increase hercoreg to 25 mg BID (looks like she currently takes 12.5 mg BID). If BP is low we can watch this at least until her appointment w Dr. Whiting in April. If she's feeling bad though let me know and we may switch some meds around. Thaks Thanks! Elena documented in this encounter Plan of Treatment Upcoming Encounters Date Type Department Care Team (Late st Contact Info) Description 04/27/2025 3:20 PM EDT Office Visit [facility] [address] [facility] [place] [address] Genaro Whiting MD [address] [place] [address] documented as of this encounter Visit Diagnoses Not on filedocumented in this encounter Additional Health Concerns Assessment Noted Time A fall risk assessment has been complete d for the patient 01/07/2024 2:40 PM EDT A Body Mass Index follow-up plan has been documented for the patient 01/07/2024 3:22 PM EDT documented as of this encounter Care Teams Stonecutter Apprentice Hand Relationship Specialty Start Date End Date Elly Handy MD [address] [place] [address] PCP - General 12/16/20 Elena Hitchcock Dental Student Dental Food Processing Scientist 05/15/24 Timo Becerra DMD [address] [place] [address] Dentist Dentist 05/27/24 documented as of this encounter
--- OUTSIDE RECORDS SUMMARY | 2025-02-22 11:04 | XMS_ITS | Clinical Summary ---
Author Organization [employer] ([place], [place], [place], [place]) Address [address] [place] [address] Care Team Providers Care Wine And Spirits Clerk Name Role Phone Unavailable Primary Care Provider [...] Date Kyle rded Speak language other than Irish at home Not on file 06/11/2024 Want [...] 07/07/2024 8:53 AM EST Plan of Treatment Health Maintenance Due Date Last Done Comments Medicare Initial AWV G0438 DXA SCAN 1945 Depression Screening (12+) 1957 Hepatitis C Screening 1963 DTAP/TDAP/TD VACCINES (1 - Tdap) 1964 Respiratory Syncytial Virus (RSV) Adult or (1 - 1-dose 75+ series) 2020 COVID-19 VACCINE (4 - season) 2024 05/31/2021, 10/12/2020, 09/14/2020 Falls Risk Screening 08/05/2024 Influenza Vaccine (#1) 2025 07/22/2018 Tobacco Cessation Counseling and Screening (12+) 07/07/2025 07/07/2024 Pneumococcal 50+ years Completed 12/25/2019, 2018 Shingles Vaccine (Zoster) Completed 09/11/2021, Insurance [facility] MEDICARE HMO
--- OUTSIDE RECORDS SUMMARY | 2025-02-22 11:04 | XMS_ITS | Continuity of Care Document ---
Author Organization [facility] [place], [facility] NEW Address [address] [place] [address] Care Team Providers Care Communications Program Manager Name Role Phone EVELYNTAMIKO Primary Care Provider [phone] Assessment No assessment recorded. Plan of Treatment Reminders Order Date Submit [...] Not available Not available Not available Lab None recorded. Referral None recorded. Procedures None recorded. Surgeries None recorded. Imaging None recorded. Medication Orders None recorded. Patient TargetsNo targets recorded. Patient InstructionsNo instructions recorded. Reason for Referral None Reported. Problems Name Problem SNOMED Code Status Onset Date Resolution Date Notes Provider Name and Address Organization Details Recorded Time Requires vaccination 349829677 Active Not Available [facility] 21:54:52 Vitamin D deficiency 82964563 Active Not Available [facility] 21:54:52 Pain of wrist region 78711848 Active Not Available [facility] 21:54:52 Essential hypertension 06297120 Active Not Available [facility] 21:54:52 Cardiac defibrillato r in situ 799192061 Active Not Available [facility] 21:54:52 Osteoporosis 22864880 Active Not Available [facility] 21:54:52 Incontinence 31003608 Active Not Available [facility] 3 21:54:52 Allergic rhinitis 97316049 Active Not Available [facility] 3 21:54:52 Low density lipoprotein cholesterol above reference range 487293466 Active Not Available [facility] 3 21:54:52 Automatic implantable cardiac defibrillato r in situ 078054472 Active Not Available [facility] 3 21:54:52 Chronic rhinitis 39443464 Active Not Available [facility] 3 21:54:53 Scalp itchy 377347051 Active Not Available [facility] 3 21:54:52 Sinusitis 66027232 Active Not Available [facility] 3 21:54:52 Disorder of carotid artery 354070827 Active Not Available [facility] 3 21:54:52 Pulmonary emphysema 29251451 Active Not Available [facility] 3 21:54:53 Fatigue 43533229 Active Not Available [facility] 3 21:54:52 Cardiomyopat hy 96662442 Active Not Available [facility] 3 21:54:52 Uncomplicate d mild persistent asthma 989657199 Active Not Available [facility] 3 21:54:52 Dyspnea on exertion 31185116 Active Not Available [facility] 3 21:54:52 Left bundle branch block 48993844 Active Not Available [facility] 3 21:54:52 Left heart failure 00631330 Active Not Available [facility] 3 21:54:52 Computed tomography result abnormal 396518308 Active Not Available [facility] 3 21:54:52 Post-acute COVID-19 8090213730 Active 2021 Not Available [facility] 3 21:54:52 Cough variant asthma 118608006 Active 2021 Not Available [facility] 3 21:54:52 Hyperlipidem ia 70472364 Active 2022 Not Available [facility] 3 21:54:52 Chronic obstructive pulmonary disease 25475575 Active 2022 Not Available [facility] 21:54:52 Severe persistent asthma 759840927 Active 2022 Not Available [facility] 21:54:52 Chest pain 75200374 Active 2023 Raza Foreman MD [address] [facility], [place], [address] , [place] - [facility] - [place] & [place] 14:32:07 Problem Notes None recorded. Procedures Surgical History Date Name Laterality Status Provider Name and Address Organization Details Recorded Time 08/20/19 25 Date of Last Colonoscopy completed Michelle ONEAL - [facility] & [place] 08/20/2024 12:42:05 07/15/20 23 Most Recent Bone Density completed Nolvia Lozano [place] - [facility] - [place] & [place] 05/16/2024 10:26:32 07/15/20 23 Most Recent Mammogram completed Nolvia Lozano [place] - [facility] - [place] & [place] 05/16/2024 10:26:43 01/28/20 18 Feces-based colorectal cancer DNA screening completed Nolvia Lozano [place] - [facility] & [place] 05/16/2024 10:35:06 07/17/20 17 cardiac pacemaker procedure completed Debra Carrero J[place] - [facility] - [place] & [place] 06/07/2023 08:48:14 08/05/19 17 Pacemaker/Defib rillator completed Michelle Crawford [place] - [facility] - [place] & [place] 07/15/2024 11:18:06 cataract surgery completed Chevy ONEAL - [facility] - [place] & [place] 01/22/2023 13:01:06 excision of lesion of skin completed Nolvia Lozano [place] - [facility] - [place] & [place] 05/16/2024 10:28:08 Imaging Results None recorded. Procedure Notes None recorded. 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 Serial Number Lot Number Status Provider Name and Address Organization Details Recorded Time ICD (implantab le cardiovert er-defibri llator) FDA Y Nolvia g[place], [place] - [facility] - [place] & [place] 05/16/2024 10:25:43 Allergies Allergen ID Allergen Name Allergen Category Reaction Reaction Severity Criticality Documentation Date Start Date Code Code System Note Provider Name and Address Organization Details Recorded Time 505111 Zithromax medicatio n vomiting Not available Not available 06/07/2023 15581 4 RxNorm Debra Carrero null, [place] [facility] - [place] & [place] 3 08:47:17 025986 onion extract food,medi cation hives Not available Not available 05/16/2024 24006 69 RxNorm criti calit y mediu m Nolvia Lozano null, [place] [facility] & [place] 4 10:28:46 26753 azithromy aletha medicatio n rash mild low 06/06/2022 45944 RxNorm Nolvia Lozano null, [place] [facility] [place] & [place] 4 10:28:22 32946 umeclidin ium bromide medicatio n other mild Not available 06/06/2022 08142 12 RxNorm Not Available [facility] 2 08:38:33 75522 doxycycli ne Not available palpitati ons mild Not available 06/06/2022 3640 RxNorm Not Available [facility] 3 15:19:34 Medications Name Sig Start Date [...] height Body mass index (BMI) Body weight Oxygen saturation Oxygen saturation in Arterial blood by Pulse oximetry Heart rate Systolic And Diastolic Provider Name and Address Organization Details Last Updated DateTime 5 160.02 cm 25.7 kg/m2 18530.8 9 g 92 % 92 % 75 /min 120/70 mm[Hg] Joanna Carrero [facility] & [place] 5 14:01:21 Social History Question Answer Notes LastModified by Organizat ion Details LastModified Time Tobacco Smoking Status Never Smoker [facility] [place] 06/06/2022 11:26:08 Do You Have An Advance Directive? Yes [email or web address] Information not available 07/15/2024 Are You Blind Or Do You Have Difficulty Seeing? No [email or web address] Information not available 07/15/2024 What Is Your Level Of Caffeine Consumption? Moderate Information not available 05/25/2024 In General, Would You Say Your Health Is Fair [email or web address] Information not available 06/23/2024 How Would You Describe The Condition Of Your Mouth And Teeth including False Teeth Or Dentures? Poor [email or web address] Information not available 06/23/2024 Each Night, How Many Hours Of Sleep Do You Usually Get? 6-7 Hours [email or web address] Information not available 06/23/2024 Do You Snore Or Has Anyone Told You That You Snore? Yes [email or web address] Information not available 06/23/2024 In The Past 7 Days, How Often Have You [place] Sleepy During The Daytime? Sometimes [email or web address] Information not available 06/23/2024 Do You Have Chronic Pain? Yes [email or web address] Information not available 06/23/2024 If Yes, Location Of Pain Hips, Back [email or web address] Information not available 06/23/2024 In The Past 7 Days, How Would You Rate Your Pain? Moderate Pain(4-6) [email or web address] Information not available 06/23/2024 Are You In A Pain Management Program? Yes [email or web address] Information not available 06/23/2024 Do You Take Opioids For Your Pain? No [email or web address] Information not available 06/23/2024 How Often Is Stress A Problem For You In Handling Such Things As: Your Health, Your Finances, Your Family And Social Relationships, Your Work? Never Or Rarely [email or web address] Information not available 06/23/2024 How Often Do You Get The Social And Emotional Support You Need: Always [email or web address] Information not available 06/23/2024 In The Past 7 Days, Did You Need Help From Others To Take Care Of Things Such As Laundry And Housekeep- Ing, Banking, Shopping, Using The Telephone, Food Preparation, Transportation, Or Taking Your Own Medications? No [email or web address] Information not available 06/23/2024 Do You Live Alone? No [email or web address] Information not available 06/23/2024 Does Your Home Have Any Fall Risks (un-level Floors, Unfastened Rugs, Poor Lighting, Etc)? No [email or web address] Information not available 06/23/2024 What Was The Date Of Your Most Recent Tobacco Screening? 07/15/2024 [email or web address] Information not available 07/15/2024 Are You Passively Exposed To Smoke? No [email or web address] Information not available 07/15/2024 Has Tobacco Cessation Counseling Been Provided? No [email or web address] Information not available 06/06/2022 Sex: Unknown Functional Status Question Answer Note LastModified by Organizat ion Details LastModified Time Do you use any illicit or recreational drugs? No [email or web address] Information not available 06/06/2022 Do you or have you ever used any other forms of tobacco or nicotine? No [email or web address] Information not available 06/06/2022 What is your level of alcohol consumption? None [email or web address] Information not available 06/06/2022 What is your exercise level? Moderate [email or web address] Information not available 07/15/2024 Mental Status Question Answer Note LastModified by Organization D etails LastModified Time Do you feel stressed (tense, restless, nervous, or anxious, or unable to sleep at night)? [id number] [email or web address] Information not available 07/15/2024 Family History Relationship Description Onset Age of this Age Resolved Age Notes LastModified by Organization Details LastModified Time Father Myocardial infarction [email or web address] Not available 10/2022 08:48:35 Father Heart failure [email or web address] Not available 2023 11:16:29 Mother Malignant neoplasm of lung [email or web address] Not available 2023 11:16:29 Mother Essential hypertension [email or web address] Not available 06/2024 11:16:29 Mother Myocardial infarction [email or web address] Not available 10/2022 08:49:33 Mother Hyperlipidem ia [email or web address] Not available 2023 11:16:29 Medical History Condition Response Other Y COPD Y Vision or Eye Problems Y Arthritis Y Cancer Y Heart Problems Y Asthma Y Pulmonary Embolism Y High Cholesterol Y Allergies/Hayfever Y Heart Disease Y Hypertension Y Osteoporosis Y Gynecological History Statement/Question Response Most Recent Mammogram 07/15/2023 Date of Last Colonoscopy 08/20/2024 Most Recent Bone Density 07/15/2023 Sexually Active? N Obstetrics History GPAL:G 0 P 0 0 0 0 Immunizations Vaccine Type Date Status Note Provider Nam e and Address Organization Details Recorded Time Influenza, adjuvanted, quadrivalent, PF 2 completed Ivy Pathak MD [address] , [place], [address], [facility] & [place] 07/12/2022 14:03:53 zoster recombinant 2 completed Not Available [facility] 07/17/2023 21:54:53 Influenza, injectable,quadriva lent, preservative free, pediatric 9 completed Not Available [facility] 07/17/2023 21:54:53 Influenza, split virus, quadrivalent, PF 0 completed Not Available [facility] 07/17/2023 21:54:53 Influenza, split virus, quadrivalent, PF 1 completed Not Available [facility] 07/17/2023 21:54:53 Pneumococcal conjugate PCV 13 9 completed Not Available [facility] 07/17/2023 21:54:53 pneumococcal polysaccharide PPV23 0 completed [facility] 21:54:53 zoster recombinant 1 completed Not Available [facility] 07/17/2023 21:54:53 Influenza, MDCK, quadrivalent, preservative 8 completed Not Available [facility] 07/17/2023 21:54:53 Influenza, split virus, trivalent, PF 6 completed [facility]/17/2023 21:54:53 Influenza, adjuvanted, trivalent, PF 7 completed Not Available [facility] 07/17/2023 21:54:53 COVID-19, mRNA, LNP-S, PF, 100 mcg/0.5mL dose or 50 mcg/0.25mL dose 1 completed Not Available [facility] 07/17/2023 21:54:53 COVID-19, mRNA, LNP-S, PF, 100 mcg/0.5mL dose or 50 mcg/0.25mL dose 1 completed Not Available [facility] 07/17/2023 21:54:53 COVID-19, mRNA, LNP-S, PF, 100 mcg/0.5mL dose or 50 mcg/0.25mL dose 1 completed Not Available [facility] 07/17/2023 21:54:53 Influenza, adjuvanted, quadrivalent, PF 3 completed Ivy Pathak MD [address] [facility], [place], [address], [facility] - [place] & [place] 05/27/2023 10:54:09 RSV, recombinant, protein subunit RSVpreF, adjuvant reconstituted, 0.5 mL, PF 4 completed [facility], [place] - [facility] - [place] & [place] 06/23/2024 09:32:28 COVID-19, mRNA, LNP-S, PF, areli-sucrose, 30 mcg/0.3 mL 4 completed [facility], [place] - [facility] & [place] 06/23/2024 09:32:28 Influenza, high-dose, trivalent, PF 4 completed Michelle [facility], [place] - [facility] - [place] & [place] 06/23/2024 09:32:28 Past Encounters Encounter ID Performer Location Encounter Start Date Encounter Closed Date Diagnosis/Indication Diagnosis SNOMED-CT Code Diagnosis ICD10 Code Diagnosis Note [id number] Tamiko Elliott MD [facility] [address] [facility] [address] [place] [address] 12/24/2024 07:56:46 12/24/2024 09:11:21 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 Vitamin D deficiency 347 05842 E55.9 Fatigue 04432586 R53.82 [id number] Tamiko Elliott MD [facility] [address] [facility] [address] [place] [address] 12/25/2024 13:18:29 12/25/2024 16:06:51 Increased frequency of urination 614536671 R35.0 patient unable to leave sample, sent home with supplies. [id number] Raza Foreman MD [facility] [address] [place] [address] 01/18/2025 13:48:51 01/18/2025 14:26:32 Cardiomyopathy 46169373 I42.9 Non-ischem ic cardiomyop athy. Now with normal LVEFstatus post [facility] Bi V ICDContinu e current heart failure regimenSod ium restrict to less than 2 g a day, fluid restrict to less than 64 oz /2 L a dayDaily weightsDis cussed addtion of NMLP3g---d he wishes to hold off for now due to costs- Jardiance is the cheaper one for her . Essential hypertension 38504584 I10 Continue current medication .Keep logLow-paco t diet < 2 gm Na/day,Reg ular exerciseWe ight loss Hyperlipidemia 61272851 E78.5 Continue statinLow fat/carboh ydrate dietIncrea se exerciseLo se weight Biventricu lar automatic implantable cardioverter defibrillator in situ [id number] 9104 Z95.810 device interrogat ion Q.6 months Health Concerns Section Related Observation LastModified by Organization Detai ls LastModified Time None Recorded Concern Status LastModified by Organization Details LastModified Time None Recorded Payers Encounter Date Sequence Insurance Name Policy Number Policy Mueller Covered Member ID Mueller Member ID Guarantor Name 01/18/2025 1 [employer] (MEDICARE REPLACEMENT/A DVANTAGE - PPO) Liz Davidson [id number] Liz Davidson Notes Date Note Type Note Provider Name and Address Organization Details Recorded Time 01/18/2025 text/html 79 F for fu NICM sp BI- IV ICD Biotronik 07/17/17 Dr Arthur, has remote monitor in place with .PCP: Dr Fernandez specific cardiovascular complaints today. No chest pain, shortness of breath, PND, orthopnea, peripheral edema, palpitations, presyncope, syncope Device interrogated as noted belowRV paced 99% bi V 99%.No arrhythmiasNo programming changes madeBattery life 3 years+ nonischemic cardiomyopathy status post Bi V ICD [employer] - now with normalization of LV function+Hypertensio n- well controlled+hyperlipi demia -on statin Nuc stress 06/2024Normal nuclear stress test with no ischemia.Calculated EF of 50%. Echo 06/2024Normal LV size with normal function. The ejection fraction is 60-65%.Left ventricular filling cannot be assessed due to tachycardia.There is mild aortic regurgitation.Compar ed to echo 2016, EF was 30% Nuc stress . No ischemia noted on nuclear stress images.2. Calculated ejection fraction of 46%.3. Stress test from 2017 showed ejection fraction of 22% with no ischemia.EKG 03/26/22: Sinus rhythm, V paced rhythm rate of 86Soc Hx: She is a home loverSravan. Raza Foreman MD [address], [place], [address], [facility] - [facility] & [place] 01/21/2025 17:06:25 OBGyn Episode No OBEpisode recorded.
--- OUTSIDE RECORDS SUMMARY | 2025-02-22 11:04 | XMS_ITS | Encounter Summary ---
Author Organization Healthcare Address [address] [place] [address] Care Team Providers Care Flight Engineer Helicopter Name Role Phone Elly Handy MD Primary Care Provider [phone] Elena Hitchcock Unavailable Unavailable Timo Becerra DMD Unavailable [phone] Encounter Details Date Type Department Care Team (Latest Contact Info) Description 02/15/2025 Travel Social History Tobacco Use Types Packs/Day Years [...] on file documented as of this encounter Plan of Treatment Upcoming Encounters Date Type Department Care Team (Late st Contact Info) Description 04/27/2025 3:20 PM EDT Office Visit [facility] [address] [facility] [place] [address] Genaro Whiting MD [address] [place] [address] documented as of this encounter Visit Diagnoses Not on filedocumented in this encounter Additional Health Concerns Assessment Noted Time A fall risk assessment has been complete d for the patient 01/07/2024 2:40 PM EDT A Body Mass Index follow-up plan has been documented for the patient 01/07/2024 3:22 PM EDT documented as of this encounter Care Teams Flight Engineer Helicopter Relationship Specialty Start Date End Date Elly Handy MD [address] [place] [address] PCP - General 12/16/20 Elena Hitchcock Dental Student Dental Back Joiner 05/15/24 Timo Becerra DMD [address] [place] [phone] Dentist Dentist 05/27/24 documented as of this encounter
--- OUTSIDE RECORDS SUMMARY | 2025-02-22 11:05 | XMS_ITS | Encounter Summary ---
Author Organization [facility] Address [address] [place] [address] Care Team Providers Care Director Of Corporate Communications Name Role Phone Elly Handy MD Primary Care Provider [phone] Elena Hitchcock Unavailable Unavailable Timo Becerra DMD Unavailable [phone] Reason for Visit * Reason Onset Date Comments HCN - Patient Message 12/24/2024 Encounter Details Date Type Department Care Team (Late st Contact Info) Description 12/24/2024 Telephone [facility] [place] [address] [place] [id number] Genaro Whiting MD [address] [place] [address] HCN - Patient Message Social History Tobacco Use Types Packs/Day Years [...] encounter Miscellaneous Notes * Telephone Encounter - Bettina Marshall - 12/24/2024 4:45 PM EDT Patient Phone Message Reason for Call: Pt is requesting a call to rs her appt.. Best contact number and optimal time of day to reach caller: [phone] Note: Please do not reply to this message. Follow-up communication and further actions as a result of this message need to be communicated with the patient directly, if the patient is not active onMyChart. If the patient is active on MyChart, they will receive notification of the communication/outcome via [employer]. documented in this encounter Plan of Treatment Upcoming Encounters Date Type Department Care Team (Late st Contact Info) Description 04/27/2025 3:20 PM EDT Office Visit [facility] [place] [address] [place] [address] Genaro Whiting MD [address] [place] [address] documented as of this encounter Visit Diagnoses Not on filedocumented in this encounter Additional Health Concerns Assessment Noted Time A fall risk assessment has been complete d for the patient 01/07/2024 2:40 PM EDT A Body Mass Index follow-up plan has been documented for the patient 01/07/2024 3:22 PM EDT documented as of this encounter Care Teams Director Of Corporate Communications Relationship Specialty Start Date End Date Elly Handy MD [address] [place] [id number] PCP - General 12/16/20 Elena Hitchcock Dental Student Dental Tactical Air Defense Controller 05/15/24 Timo Becerra DMD [address] [place] [address] Dentist Dentist 05/27/24 documented as of this encounter
--- OUTSIDE RECORDS SUMMARY | 2025-02-22 11:05 | XMS_ITS | Encounter Summary ---
Author Organization [facility] Address [address] [place] [address] Care Team Providers Care Watchmaking Teacher Name Role Phone Elly Handy MD Primary Care Provider [phone] Elena Hitchcock Unavailable Unavailable Timo Becerra DMD Unavailable [phone] Encounter Details Date Type Department Care Team (Latest Contact Info) Description 02/09/2025 Travel Social History Tobacco Use Types Packs/Day [...] Description 04/27/2025 3:20 PM EDT Office Visit [facility] [place] [address] [place] [address] Genaro Whiting MD [address] [place] [phone] documented as of this encounter Visit Diagnoses Not on filedocumented in this encounter Additional Health Concerns Assessment Noted Time A fall risk assessment has been complete d for the patient 01/07/2024 2:40 PM EDT A Body Mass Index follow-up plan has been documented for the patient 01/07/2024 3:22 PM EDT documented as of this encounter Care Teams Watchmaking Teacher Relationship Specialty Start Date End Date Elly Handy MD [address] [place] [address] PCP - General 12/16/20 Elena Hitchcock Dental Student Dental Soft Crab Shedder 05/15/24 Timo Becerra DMD [address] [place] [id number] Dentist Dentist 05/27/24 documented as of this encounter
--- OUTSIDE RECORDS SUMMARY | 2025-02-22 11:05 | XMS_ITS | Encounter Summary ---
Author Organization [facility] ([place], [place], [place], [place]) Address [address] [place] [address] Care Team Providers Care Communications Professional Name Role Phone Unavailable Primary Care Provider Unavailabl e Reason for Referral * CAT Scan (Routine) - Closed Specialty Diagnoses / Procedures Referred By Contac t Referred To Contact Radiology Diagnoses Lumbar spine pain Procedures CT spine lumbar without contrast Marcelino Casillas PA-C [address] [address] Phone: tel: fax: Referral ID Status Reason Start Date Expiration Date Visits Re quested Visits Authorized [id number] Closed 06/08/2024 08/07/2024 1 1 * Flouroscopy (Routine) - Closed Specialty Diagnoses / Procedures Referred By Contac t Referred To Contact Diagnoses Lumbar spine pain Procedures [place] myelogram lumbar Marcelino Casillas PA-C [address] [address] Phone: tel: fax: Referral ID Status Reason Start Date Expiration Date Visits Re quested Visits Authorized [id number] Closed 07/04/2024 06/10/2025 1 1 Encounter Details Date Type Department Care Team (Late st Contact Info) Description 06/10/[address] [facility] Central Scheduling [address] [place] [address] Marcelino Casillas PA-C [address] [facility] 2nd floor [place] [id number] Lumbar spine pain (Primary Dx) Social History Tobacco Use Types Packs/Day Years Used Date Smoking Tobacco: Never Assessed Family and Community Support Answer Abdifatah e Recorded Help with Day to Day Activities Not on file 06/11/2024 Feeling Lonely or Isolated Not on file 06/11 Educational Attainment Answer Date Kyle rded Speak language other than Syriac at home Not on file 06/11/2024 Want help with school or training Not on file 06/11/2024 Substance Use Answer Date Recorded Used prescription meds for non-medical reasons N ot on file 06/11/2024 Used illegal drugs past 12 months Not on file 06/11/2024 Comments Unknown Sex and Gender Information Value Date Recorded Sex Assigned at Not on file Legal Sex Female 1:46 PM CDT Gender Identity Not on file Sexual Orientation Not on file documented as of this encounter Plan of Treatment Not on file documented as of this encounter Results * [place] myelogram lumbar (07/07/2024 10:10 AM EST) Anatomical Region Laterality Modality L-spine, T-spine, Abdomen, Pelvis X-Ray 07/07/2024 11:5 6 AM EST Impressions 07/07/2024 12:22 PM EST Degenerative changes as above. Please see CT scan report. Images reviewed, interpreted, and dictated by Dr. Julian You. Transcribed by Marla Humphrey PA-C. Narrative 07/07/2024 12:22 PM EST LUMBAR MYELOGRAM HISTORY: Back pain. ATTENDING PHYSICIAN: Dr. You PHYSICIAN RESIDENTIAL LIFE DIRECTOR: Marla Singleton PA-C. PROCEDURE: Informed consent was obtained. A time-out was performed, and the patient was prepped and draped in usual sterile fashion over the lumbar spine. Utilizing local anesthesia and direct fluoroscopic guidance, access to the thecal space was obtained at the L5-S1 level. 12 mL of Isovue 200 M was gently injected. Spot and overhead films were obtained. FINDINGS: Contrast is identified in the thecal space. There is mild leftward curvature of the lumbar spine. There is disc space narrowing at L5-S1. There is mild narrowing of the canal at L4-L5 with minimal nerve root compression on the left. There is mild indentation of the thecal sac at L3-L4 and L4-L5 anteriorly. Flexion and extension views demonstrate no abnormal motion. FLUOROSCOPY TIME: 1.1 minutes RADIATION DOSE: Reference air kerma 71 mGy. FLUOROSCOPY FILMS: 12 Procedure Note Julian You MD - 07/07/2024 LUMBAR MYELOGRAM HISTORY: Back pain. ATTENDING PHYSICIAN: Dr. You PHYSICIAN RESIDENTIAL LIFE DIRECTOR: Marla Singleton PA-C. PROCEDURE: Informed consent was obtained. A time-out was performed, and the patient was prepped and draped in usual sterile fashion over the lumbar spine. Utilizing local anesthesia and direct fluoroscopic guidance, access to the thecal space was obtained at the L5-S1 level. 12 mL of Isovue 200 M was gently injected. Spot and overhead films were obtained. FINDINGS: Contrast is identified in the thecal space. There is mild leftward curvature of the lumbar spine. There is disc space narrowing at L5-S1. There is mild narrowing of the canal at L4-L5 with minimal nerve root compression on the left. There is mild indentation of the thecal sac at L3-L4 and L4-L5 anteriorly. Flexion and extension views demonstrate no abnormal motion. FLUOROSCOPY TIME: 1.1 minutes RADIATION DOSE: Reference air kerma 71 mGy. FLUOROSCOPY FILMS: 12 IMPRESSION: Degenerative changes as above. Please see CT scan report. Images reviewed, interpreted, and dictated by Dr. Julian You. Transcribed by Marla Humphrey PA-C. Marcelino Casillas PA-C IMG FLUOROSCOPY ORDERABLES Fin al Result * CT spine lumbar without contrast (07/07/2024 9:54 AM EST) Anatomical Region Laterality Modality T-spine, L-spine, Pelvis Compute d Tomography (CT) 07/07/2024 4:57 PM EST Impressions 07/07/2024 5:01 PM EST Degenerative disc disease as detailed above. Images reviewed, interpreted, and dictated by Dr. Julian You. Transcribed by Marla Humphrey PA-C. Narrative 07/07/2024 5:[address] WITH CONTRAST - POST MYELOGRAM 07/07/2024 9:53 AM HISTORY: Chronic Lumbar back pain. PROCEDURE: After the patient's myelogram, axial images were obtained through the spine by computed tomography. Sagittal reconstruction images were performed. This study was performed with techniques to keep radiation doses as low as reasonably achievable, (ALARA). Individualized dose reduction techniques using automated exposure control or adjustment of mA and/or kV according to the patient size were employed. FINDINGS: Contrast is identified in the thecal space. No acute fracture or subluxation. The conus terminates at the L1 level. There are mild degenerative changes of the SI joints bilaterally. L1-L2: There is mild annular bulging without stenosis. L2-L3: There is mild annular bulging without stenosis. L3-L4: There is mild annular bulging with mild posterior element hypertrophy. No evidence of stenosis. L4-L5: There is mild annular bulging without stenosis. L5-S1: There is disc space narrowing with calcification of the disc with no canal or foraminal stenosis. There is mild facet hypertrophy. Procedure Note Julian You MD - 07/07/[address] WITH CONTRAST - POST MYELOGRAM 07/07/2024 9:53 AM HISTORY: Chronic Lumbar back pain. PROCEDURE: After the patient's myelogram, axial images were obtained through the spine by computed tomography. Sagittal reconstruction images were performed. This study was performed with techniques to keep radiation doses as low as reasonably achievable, (ALARA). Individualized dose reduction techniques using automated exposure control or adjustment of mA and/or kV according to the patient size were employed. FINDINGS: Contrast is identified in the thecal space. No acute fracture or subluxation. The conus terminates at the L1 level. There are mild degenerative changes of the SI joints bilaterally. L1-L2: There is mild annular bulging without stenosis. L2-L3: There is mild annular bulging without stenosis. L3-L4: There is mild annular bulging with mild posterior element hypertrophy. No evidence of stenosis. L4-L5: There is mild annular bulging without stenosis. L5-S1: There is disc space narrowing with calcification of the disc with no canal or foraminal stenosis. There is mild facet hypertrophy. IMPRESSION: Degenerative disc disease as detailed above. Images reviewed, interpreted, and dictated by Dr. Julian You. Transcribed by Marla Humphrey PA-C. us Marcelino Casillas PA-C IMG CT ORDERABLES Final Result documented in this encounter Visit Diagnoses Diagnosis Lumbar spine pain- Primary Lumbar spine pain Lumbar spine pain documented in this encounter
--- OUTSIDE RECORDS SUMMARY | 2025-02-22 11:05 | XMS_ITS | Data Portability ---
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 Name Role Phone EVELYNTAMIKO Primary Care Provider [phone] Assessment Encounter Date Assessment Date Assessment LastModified [...] Not available Not available Not available Lab culture, urine 2024 025 [place] [facility] ([place]), [address] [place] [address], [place], [address], 12/29/2024 18:09:28 urinalysi s, dipstick 2024 025 [email or web address] [facility], [address], [place], [address], 12/29/2024 09:07:31 vitamin D, 25-hydrox y, total, serum 2024 025 [facility]), [address] [place], [address], 12/25/2024 10:11:13 lipid panel, serum 2024 025 [facility]), [address] [place], [address], 12/25/2024 10:11:11 CMP, serum or plasma 2024 025 [facility]), [address] [place], [address], 12/25/2024 10:11:10 CBC w/ auto diff 2024 025 [facility]), [address] [place], [address], 12/25/2024 10:11:09 cobalamin and folate panel, serum 2024 025 [facility]), [address] [place], [address], 12/25/2024 10:11:13 vitamin D, 25-hydrox y, total, serum [address]), [address] [place], [address], 01/25/2025 08:58:41 magnesium , serum or plasma 2024 025 [facility]), [address] [place], [address], 12/25/2024 10:11:14 thyroid panel, serum 2024 025 [facility]), [address] [place], [address], 12/25/2024 10:11:12 Referral None recorded. Procedures None recorded. Surgeries None recorded. Imaging None recorded. Medication Orders amitripty line 10 mg tablet 2024 025 [facility], [address], [address], 12/24/2024 08:43:41 nystatin 100,000 unit/mL oral suspensio n 2024 025 [facility], [address], [address], 12/24/2024 08:43:42 atorvasta tin 20 mg tablet 2024 025 [facility], [address], [address], 12/24/2024 08:43:42 Patient TargetsNo targets recorded. Patient InstructionsNo instructions recorded. Reason for Referral None Reported. Results Created Date Observation Date Name Description Value Unit Range Abnormal Flag Note LastModifiedBy Organization Detail LastModifiedTime 07/08/20 24 07/08/2024 nonin vasiv e color ectal cance r DNA + occul t blood scree lesley, QL, stool cologuard positive POSIT ELEANOR COLOG UARD Not Available [facility] (Cologuard Orders Only) [address], [place], [address], 07/15/2024 06:13:54 07/10/20 24 07/11/2024 CBC WITH DIFFE RENTI AL/PL ATELE T WBC 7.3 x10e3 /uL 3.4-10 .8 normal Not Available [facility] ([facility]) [address] [facility], [place], [address], 07/11/2024 07:14:39 07/10/20 24 07/11/2024 CBC WITH DIFFE RENTI AL/PL ATELE T RBC 3.95 x10e6 /uL 3.77-5 .28 normal Not Available [facility] ([facility]) [address] [facility], [place], [address], 07/11/2024 07:14:39 07/10/20 24 07/11/2024 CBC WITH DIFFE RENTI AL/PL ATELE T hemoglobin 11.9 g/dL 11.1-1 5.9 normal Not Available [facility] ([facility]) [address] [place], [address], 07/11/2024 07:14:39 07/10/20 24 07/11/2024 CBC WITH DIFFE RENTI AL/PL ATELE T hematocrit 36.6 % 34.0-4 6.6 normal Not Available [facility] ([facility]) [address] [facility], [place], [address], 07/11/2024 07:14:39 07/10/20 24 07/11/2024 CBC WITH DIFFE RENTI AL/PL ATELE T MCV 93 fL 79-97 normal Not Available [facility] ([facility]) [address] [place], [address], 07/11/2024 07:14:39 07/10/20 24 07/11/2024 CBC WITH DIFFE RENTI AL/PL ATELE T MCH 30.1 pg 26.6-3 3.0 normal Not Available [facility] ([facility]) [address] [place], [address], 07/11/2024 07:14:39 07/10/20 24 07/11/2024 CBC WITH DIFFE RENTI AL/PL ATELE T MCHC 32.5 g/dL 31.5-3 5.7 normal Not Available [facility] ([facility]) [address] [place], [address], 07/11/2024 07:14:39 07/10/20 24 07/11/2024 CBC WITH DIFFE RENTI AL/PL ATELE T RDW 13.2 % 11.7-1 5.4 Not Available [facility] ([facility]) [address] [facility], [place], [address], 07/11/2024 07:14:39 07/10/20 24 07/11/2024 CBC WITH DIFFE RENTI AL/PL ATELE T platelets 238 x10e3 /uL 150-45 0 normal Not Available [facility] ([facility]) [address] [facility], [place], [address], 07/11/2024 07:14:39 07/10/20 24 07/11/2024 CBC WITH DIFFE RENTI AL/PL ATELE T neutrophils 50 % not estab. normal Not Available [facility] ([facility]) [address] [facility], [place], [address], 07/11/2024 07:14:39 07/10/20 24 07/11/2024 CBC WITH DIFFE RENTI AL/PL ATELE T lymphs 35 % not estab. normal Not Available [facility] ([facility]) [address] [facility], [place], [address], 07/11/2024 07:14:39 07/10/20 24 07/11/2024 CBC WITH DIFFE RENTI AL/PL ATELE T monocytes 12 % not estab. normal Not Available [facility] ([facility]) [address] [facility], [place], [address], 07/11/2024 07:14:39 07/10/20 24 07/11/2024 CBC WITH DIFFE RENTI AL/PL ATELE T eos 2 % not estab. normal Not Available [facility] ([facility]) [address] [facility], [place], [address], 07/11/2024 07:14:39 07/10/20 24 07/11/2024 CBC WITH DIFFE RENTI AL/PL ATELE T basos 1 % not estab. normal Not Available [facility] ([facility]) [address] [facility], [place], [address], 07/11/2024 07:14:39 07/10/20 24 07/11/2024 CBC WITH DIFFE RENTI AL/PL ATELE T immature cells [employer] Not Available [facility] ([facility]) [address] [place], [address], 07/11/2024 07:14:39 07/10/20 24 07/11/2024 CBC WITH DIFFE RENTI AL/PL ATELE T neutrophils (absolute) 3.7 x10e3 /uL 1.4-7. 0 normal Not Available [facility] ([facility]) [address] [place], [address], 07/11/2024 07:14:39 07/10/20 24 07/11/2024 CBC WITH DIFFE RENTI AL/PL ATELE T lymphs (absolute) 2.5 x10e3 /uL 0.7-3. 1 normal Not Available [facility] ([facility]) [address] [place], [address], 07/11/2024 07:14:39 07/10/20 24 07/11/2024 CBC WITH DIFFE RENTI AL/PL ATELE T monocytes(ab solute) 0.9 x10e3 /uL 0.1-0. 9 normal Not Available [facility] ([facility]) [address] [place], [address], 07/11/2024 07:14:39 07/10/20 24 07/11/2024 CBC WITH DIFFE RENTI AL/PL ATELE T eos (absolute) 0.1 x10e3 /uL 0.0-0. 4 normal Not Available [facility] ([facility]) [address] [place], [address], 07/11/2024 07:14:39 07/10/20 24 07/11/2024 CBC WITH DIFFE RENTI AL/PL ATELE T baso (absolute) 0.1 x10e3 /uL 0.0-0. 2 normal Not Available [facility] ([facility]) [address] [facility], [place], [address], 07/11/2024 07:14:39 07/10/20 24 07/11/2024 CBC WITH DIFFE RENTI AL/PL ATELE T immature granulocytes 0 % not estab. Not Available [facility] ([facility]) [address] [facility], [place], [address], 07/11/2024 07:14:39 07/10/20 24 07/11/2024 CBC WITH DIFFE RENTI AL/PL ATELE T immature grans (abs) 0.0 x10e3 /uL 0.0-0. 1 Not Available [facility] ([facility]) [address] [facility], [place], [address], 07/11/2024 07:14:39 07/10/20 24 07/11/2024 CBC WITH DIFFE RENTI AL/PL ATELE T NRBC [employer] Not Available [facility] ([facility]) [address] [facility], [place], [address], 07/11/2024 07:14:39 07/10/20 24 07/11/2024 CBC WITH DIFFE RENTI AL/PL ATELE T hematology comments: [employer] Not Available [facility] ([facility]) [address] [facility], [place], [address], 07/11/2024 07:14:39 07/10/20 24 07/11/2024 COMP. METAB OLIC PANEL (14) glucose 100 mg/dL 70-99 above high normal Not Available [facility] ([facility]) [address] [facility], [place], [address], 07/11/2024 07:14:40 07/10/20 24 07/11/2024 COMP. METAB OLIC PANEL (14) BUN 20 mg/dL 8-27 normal Not Available [facility] ([facility]) [address] [facility], [place], [address], 07/11/2024 07:14:40 07/10/20 24 07/11/2024 COMP. METAB OLIC PANEL (14) creatinine 0.83 mg/dL 0.57-1 .00 normal Not Available [facility] ([facility]) [address] [facility], [place], [address], 07/11/2024 07:14:40 07/10/20 24 07/11/2024 COMP. METAB OLIC PANEL (14) eGFR 72 mL/mi n/1.7 3 >59 normal Not Available [facility] ([facility]) [address] [facility], [place], [address], 07/11/2024 07:14:40 07/10/20 24 07/11/2024 COMP. METAB OLIC PANEL (14) BUN/creatini ne ratio 24 12- normal Not Available [facility] ([facility]) [address] [facility], [place], [address], 07/11/2024 07:14:40 07/10/20 24 07/11/2024 COMP. METAB OLIC PANEL (14) sodium 145 mmol/ L 134-14 4 above high normal Not Available [facility] ([facility]) [address] [facility] [place], [address], 07/11/2024 07:14:40 07/10/20 24 07/11/2024 COMP. METAB OLIC PANEL (14) potassium 4.4 mmol/ L 3.5-5. 2 normal Not Available [facility] ([facility]) [address] [facility] [place], [address], 07/11/2024 07:14:40 07/10/20 24 07/11/2024 COMP. METAB OLIC PANEL (14) chloride 108 mmol/ L 96-106 above high normal Not Available [facility] ([facility]) [address] [facility] [place], [address], 07/11/2024 07:14:40 07/10/20 24 07/11/2024 COMP. METAB OLIC PANEL (14) carbon dioxide, total 24 mmol/ L 20-29 normal Not Available [facility] ([facility]) [address] [facility] [place], [address], 07/11/2024 07:14:40 07/10/20 24 07/11/2024 COMP. METAB OLIC PANEL (14) calcium 9.5 mg/dL 8.7-10 .3 normal Not Available [facility] ([facility]) [address] [facility] [place], [address], 07/11/2024 07:14:40 07/10/20 24 07/11/2024 COMP. METAB OLIC PANEL (14) protein, total 6.6 g/dL 6.0-8. 5 normal Not Available [facility] ([facility]) [address] [facility] [place], [address], 07/11/2024 07:14:40 07/10/20 24 07/11/2024 COMP. METAB OLIC PANEL (14) albumin 4.0 g/dL 3.8-4. 8 normal Not Available [facility] ([facility]) [address] [facility] [place], [address], 07/11/2024 07:14:40 07/10/20 24 07/11/2024 COMP. METAB OLIC PANEL (14) globulin, total 2.6 g/dL 1.5-4. 5 Not Available [facility] ([facility]) [address] [facility] [place], [address], 07/11/2024 07:14:40 07/10/20 24 07/11/2024 COMP. METAB OLIC PANEL (14) bilirubin, total 0.2 mg/dL 0.0-1. 2 normal Not Available [facility] ([facility]) [address] [facility] [place], [address], 07/11/2024 07:14:40 07/10/20 24 07/11/2024 COMP. METAB OLIC PANEL (14) alkaline phosphatase 62 IU/L 44-121 normal Not Available [facility] ([facility]) [address] [facility] [place], [address], 07/11/2024 07:14:40 07/10/20 24 07/11/2024 COMP. METAB OLIC PANEL (14) AST (SGOT) 19 IU/L 0-40 normal Not Available [facility] ([facility]) [address] [facility] [place], [address], 07/11/2024 07:14:40 07/10/20 24 07/11/2024 COMP. METAB OLIC PANEL (14) ALT (SGPT) 13 IU/L 0-32 normal Not Available [facility] ([facility]) [address] [facility] [place], [address], 07/11/2024 07:14:40 07/10/20 24 07/11/2024 LIPID PANEL cholesterol, total 241 mg/dL 100-19 9 above high normal Not Available [facility] ([facility]) [address] [facility] [place], [address], 07/11/2024 07:14:41 07/10/20 24 07/11/2024 LIPID PANEL triglyceride s 183 mg/dL 0-149 above high normal Not Available [facility] ([facility]) [address] [facility] [place], [address], 07/11/2024 07:14:41 07/10/20 24 07/11/2024 LIPID PANEL HDL cholesterol 42 mg/dL >39 normal Not Available [facility] ([facility]) [address] [facility] [place], [address], 07/11/2024 07:14:41 07/10/20 24 07/11/2024 LIPID PANEL VLDL cholesterol mohit 34 mg/dL 5-40 Not Available [facility] ([facility]) [address] [place], [address], 07/11/2024 07:14:41 07/10/20 24 07/11/2024 LIPID PANEL LDL chol calc ([facility]) 165 mg/dL 0-99 above high normal Not Available [facility] ([facility]) [address] [facility], [place], [address], 07/11/2024 07:14:41 07/10/20 24 07/11/2024 LIPID PANEL LDL calc comment: [employer] Not Available [facility] ([facility]) [address] [facility], [place], [address], 07/11/2024 07:14:41 07/10/20 24 07/11/2024 HEMOG LOBIN A1C hemoglobin A1C 6.3 % 4.8-5. 6 above high normal Predi abete s: 5.7 - 6.4 Diabe cathryn: >6.4 Glyce lorena contr ol for adult s with diabe cathryn: <7.0 Not Available [facility] ([facility]) [address] [facility], [place], [address], 07/11/2024 07:14:42 07/10/20 24 07/11/2024 VITAM IN D, 25-HY DROXY vitamin D, 25-hydroxy 31.5 NG/mL 30.0-1 00.0 Vitam in D defic iency has been defin ed by the Insti tute of Medic ine and an Endoc rine Socie ty pract ice guide line as a level of serum 25-OH vitam in D less than 20 ng/mL (1,2) . The Endoc rine Socie ty went on to furth er defin e vitam in D insuf ficie ncy as a level betwe en 21 and 29 ng/mL (2). 1. IOM (Inst itute of Medic ine). 2009. Dieta ry refer ence chapito es for calci um and D. Angela wei DC: The Natio nal [facility] . 2. Kristen rea MF, [place], Rubens off-F errar i SMALLS, et al. Evalu ation , treat ment, and preve ntion of vitam in D defic iency : an Endoc rine Socie ty clini mohit pract ice guide line. JCEM. 2010; 96(7) :1911 -30. Not Available [facility] ([facility]) [address] [facility], [place], [address], 07/11/2024 07:14:43 12/25/19 25 12/25/2024 CBC WITH DIFFE RENTI AL/PL ATELE T WBC 7.9 x10e3 /uL 3.4-10 .8 normal Not Available [facility] ([facility]) [address] [facility], [place], [address], 12/25/2024 10:11:09 12/25/19 25 12/25/2024 CBC WITH DIFFE RENTI AL/PL ATELE T RBC 4.29 x10e6 /uL 3.77-5 .28 normal Not Available [facility] ([facility]) [address] [facility], [place], [address], 12/25/2024 10:11:09 12/25/19 25 12/25/2024 CBC WITH DIFFE RENTI AL/PL ATELE T hemoglobin 12.3 g/dL 11.1-1 5.9 normal Not Available [facility] ([facility]) [address] [facility], [place], [address], 12/25/2024 10:11:09 12/25/19 25 12/25/2024 CBC WITH DIFFE RENTI AL/PL ATELE T hematocrit 38.7 % 34.0-4 6.6 normal Not Available [facility] ([facility]) [address] [place], [address], 12/25/2024 10:11:09 12/25/19 25 12/25/2024 CBC WITH DIFFE RENTI AL/PL ATELE T MCV 90 fL 79-97 normal Not Available [facility] ([facility]) [address] [place], [address], 12/25/2024 10:11:09 12/25/19 25 12/25/2024 CBC WITH DIFFE RENTI AL/PL ATELE T MCH 28.7 pg 26.6-3 3.0 normal Not Available [facility] ([facility]) [address] [facility], [place], [address], 12/25/2024 10:11:09 12/25/19 25 12/25/2024 CBC WITH DIFFE RENTI AL/PL ATELE T MCHC 31.8 g/dL 31.5-3 5.7 normal Not Available [facility] ([facility]) [address] [facility], [place], [address], 12/25/2024 10:11:09 12/25/19 25 12/25/2024 CBC WITH DIFFE RENTI AL/PL ATELE T RDW 14.5 % 11.7-1 5.4 Not Available [facility] ([facility]) [address] [facility], [place], [address], 12/25/2024 10:11:09 12/25/19 25 12/25/2024 CBC WITH DIFFE RENTI AL/PL ATELE T platelets 215 x10e3 /uL 150-45 0 normal Not Available [facility] ([facility]) [address] [facility], [place], [address], 12/25/2024 10:11:12/25/1912/25/2024 CBC WITH DIFFE RENTI AL/PL ATELE T neutrophils 48 % not estab. normal Not Available [facility] ([facility]) [address] [facility], [place], [address], 12/25/2024 10:11:09 12/25/19 25 12/25/2024 CBC WITH DIFFE RENTI AL/PL ATELE T lymphs 36 % not estab. normal Not Available [facility] ([facility]) [address] [place], [address], 12/25/2024 10:11:09 12/25/19 25 12/25/2024 CBC WITH DIFFE RENTI AL/PL ATELE T monocytes 13 % not estab. normal Not Available [facility] ([facility]) [address] [facility], [place], [address], 12/25/2024 10:11:09 12/25/19 25 12/25/2024 CBC WITH DIFFE RENTI AL/PL ATELE T eos 1 % not estab. normal Not Available [facility] ([facility]) [address] [facility], [place], [address], 12/25/2024 10:11:12/25/19 25 12/25/2024 CBC WITH DIFFE RENTI AL/PL ATELE T basos 1 % not estab. normal Not Available [facility] ([facility]) [address] [facility], [place], [address], 12/25/2024 10:11:09 12/25/19 25 12/25/2024 CBC WITH DIFFE RENTI AL/PL ATELE T immature cells [employer] Not Available [facility] ([facility]) [address] [place], [address], 12/25/2024 10:11:09 12/25/19 25 12/25/2024 CBC WITH DIFFE RENTI AL/PL ATELE T neutrophils (absolute) 3.9 x10e3 /uL 1.4-7. 0 normal Not Available [facility] ([facility]) [address] [facility], [place], [address], 12/25/2024 10:11:09 12/25/19 25 12/25/2024 CBC WITH DIFFE RENTI AL/PL ATELE T lymphs (absolute) 2.8 x10e3 /uL 0.7-3. 1 normal Not Available [facility] ([facility]) [address] [place], [address], 12/25/2024 10:11:09 12/25/19 25 12/25/2024 CBC WITH DIFFE RENTI AL/PL ATELE T monocytes(ab solute) 1.0 x10e3 /uL 0.1-0. 9 above high normal Not Available [facility] ([facility]) [address] [place], [address], 12/25/2024 10:11:09 12/25/19 25 12/25/2024 CBC WITH DIFFE RENTI AL/PL ATELE T eos (absolute) 0.1 x10e3 /uL 0.0-0. 4 normal Not Available [facility] ([facility]) [address] [facility], [place], [address], 12/25/2024 10:11:09 12/25/19 25 12/25/2024 CBC WITH DIFFE RENTI AL/PL ATELE T baso (absolute) 0.1 x10e3 /uL 0.0-0. 2 normal Not Available [facility] ([facility]) [address] [place], [address], 12/25/2024 10:11:09 12/25/19 25 12/25/2024 CBC WITH DIFFE RENTI AL/PL ATELE T immature granulocytes 1 % not estab. Not Available [facility] ([facility]) [address] [place], [address], 12/25/2024 10:11:09 12/25/19 25 12/25/2024 CBC WITH DIFFE RENTI AL/PL ATELE T immature grans (abs) 0.0 x10e3 /uL 0.0-0. 1 Not Available [facility] ([facility]) [address] [place], [address], 12/25/2024 10:11:09 12/25/19 25 12/25/2024 CBC WITH DIFFE RENTI AL/PL ATELE T NRBC [employer] Not Available [facility] ([facility]) [address] [place], [address], 12/25/2024 10:11:09 12/25/19 25 12/25/2024 CBC WITH DIFFE RENTI AL/PL ATELE T hematology comments: [employer] Not Available [facility] ([facility]) [address] [facility], [place], [address], 12/25/2024 10:11:09 12/25/19 25 12/25/2024 COMP. METAB OLIC PANEL (14) glucose 94 mg/dL 70-99 normal Not Available [facility] ([facility]) [address] [facility], [place], [address], 12/25/2024 10:11:10 12/25/19 25 12/25/2024 COMP. METAB OLIC PANEL (14) BUN 23 mg/dL 8-27 normal Not Available [facility] ([facility]) [address] [facility], [place], [address], 12/25/2024 10:11:10 12/25/19 25 12/25/2024 COMP. METAB OLIC PANEL (14) creatinine 1.08 mg/dL 0.57-1 .00 above high normal Not Available [facility] ([facility]) [address] [place], [address], 12/25/2024 10:11:10 12/25/19 25 12/25/2024 COMP. METAB OLIC PANEL (14) eGFR 52 mL/mi n/1.7 3 >59 below low normal Not Available [facility] ([facility]) [address] [facility], [place], [address], 12/25/2024 10:11:10 12/25/19 25 12/25/2024 COMP. METAB OLIC PANEL (14) BUN/creatini ne ratio 21 12-28 normal Not Available [facility] ([facility]) [address] [place], [address], 12/25/2024 10:11:10 12/25/19 25 12/25/2024 COMP. METAB OLIC PANEL (14) sodium 143 mmol/ L 134-14 4 normal Not Available [facility] ([facility]) [address] [place], [address], 12/25/2024 10:11:10 12/25/19 25 12/25/2024 COMP. METAB OLIC PANEL (14) potassium 4.6 mmol/ L 3.5-5. 2 normal Not Available [facility] ([facility]) [address] [place], [address], 12/25/2024 10:11:10 12/25/19 25 12/25/2024 COMP. METAB OLIC PANEL (14) chloride 106 mmol/ L 96-106 normal Not Available [facility] ([facility]) [address] [place], [address], 12/25/2024 10:11:10 12/25/19 25 12/25/2024 COMP. METAB OLIC PANEL (14) carbon dioxide, total 22 mmol/ L 20-29 normal Not Available [facility] ([facility]) [address] [facility] [place], [address], 12/25/2024 10:11:10 12/25/19 25 12/25/2024 COMP. METAB OLIC PANEL (14) calcium 9.3 mg/dL 8.7-10 .3 normal Not Available [facility] ([facility]) [address] [facility] [place], [address], 12/25/2024 10:11:10 12/25/19 25 12/25/2024 COMP. METAB OLIC PANEL (14) protein, total 6.8 g/dL 6.0-8. 5 normal Not Available [facility] ([facility]) [address] [facility] [place], [address], 12/25/2024 10:11:10 12/25/19 25 12/25/2024 COMP. METAB OLIC PANEL (14) albumin 4.3 g/dL 3.8-4. 8 normal Not Available [facility] ([facility]) [address] [facility] [place], [address], 12/25/2024 10:11:10 12/25/19 25 12/25/2024 COMP. METAB OLIC PANEL (14) globulin, total 2.5 g/dL 1.5-4. 5 Not Available [facility] ([facility] [facility]) [address] [facility] [place], [address], 12/25/2024 10:11:10 12/25/19 25 12/25/2024 COMP. METAB OLIC PANEL (14) bilirubin, total 0.4 mg/dL 0.0-1. 2 normal Not Available [facility] ([facility]) [address] [facility] [place], [address], 12/25/2024 10:11:10 12/25/19 25 12/25/2024 COMP. METAB OLIC PANEL (14) alkaline phosphatase 76 IU/L 44-121 normal Not Available [facility] ([facility]) [address] [facility], [place], [address], 12/25/2024 10:11:10 12/25/19 25 12/25/2024 COMP. METAB OLIC PANEL (14) AST (SGOT) 18 IU/L 0-40 normal Not Available [facility] ([facility]) [address] [facility], [place], [address], 12/25/2024 10:11:10 12/25/19 25 12/25/2024 COMP. METAB OLIC PANEL (14) ALT (SGPT) 11 IU/L 0-32 normal Not Available [facility] ([facility]) [address] [facility] [place], [address], 12/25/2024 10:11:10 12/25/19 25 12/25/2024 LIPID PANEL cholesterol, total 142 mg/dL 100-19 9 normal Not Available [facility] ([facility]) [address] [facility] [place], [address], 12/25/2024 10:11:11 12/25/19 25 12/25/2024 LIPID PANEL triglyceride s 138 mg/dL 0-149 normal Not Available [facility] ([facility]) [address] [place], [address], 12/25/2024 10:11:11 12/25/19 25 12/25/2024 LIPID PANEL HDL cholesterol 43 mg/dL >39 normal Not Available [facility] ([facility]) [address] [place], [address], 12/25/2024 10:11:11 12/25/19 25 12/25/2024 LIPID PANEL VLDL cholesterol mohit 24 mg/dL 5-40 Not Available [facility] ([facility]) [address] [place], [address], 12/25/2024 10:11:11 12/25/19 25 12/25/2024 LIPID PANEL LDL chol calc ([facility]) 75 mg/dL 0-99 Not Available [facility] ([facility]) [address] [place], [address], 12/25/2024 10:11:11 12/25/19 25 12/25/2024 LIPID PANEL LDL calc comment: [employer] Not Available [facility] ([facility]) [address] [place], [address], 12/25/2024 10:11:11 12/25/19 25 12/25/2024 THYRO ID PROFI LE II TSH 5.060 uIU/m L 0.450- 4.500 above high normal Not Available [facility] ([facility]) [address] [place], [address], 12/25/2024 10:11:12 12/25/19 25 12/25/2024 THYRO ID PROFI LE II thyroxine (T4) 8.2 ug/dL 4.5-12 .0 normal Not Available [facility] ([facility]) [address] [place], [address], 12/25/2024 10:11:12 12/25/19 25 12/25/2024 THYRO ID PROFI LE II T3 uptake 27 % 24-39 normal Not Available [facility] ([facility]) [address] [facility] [place], [address], 12/25/2024 10:11:12 12/25/19 25 12/25/2024 THYRO ID PROFI LE II free thyroxine index 2.2 1.2-4. 9 normal Not Available [facility] ([facility]) [address] [facility] [place], [address], 12/25/2024 10:11:12 12/25/19 25 12/25/2024 THYRO ID PROFI LE II triiodothyro nine (T3) 192 NG/dL 71-180 above high normal Not Available [facility] ([facility]) [address] [facility], [place], [address], 12/25/2024 10:11:12 12/25/19 25 12/25/2024 VITAM IN B12 AND FOLAT E vitamin B12 480 pg/mL 232-12 45 normal Not Available [facility] ([facility]) [address] [facility], [place], [address], 12/25/2024 10:11:13 12/25/19 25 12/25/2024 VITAM IN B12 AND FOLAT E folate (folic acid), serum 3.1 NG/mL >3.0 normal A serum folat e nadya ntrat ion of less than 3.1 ng/mL is consi dered to repre sent clini mohit defic iency . Not Available [facility] ([facility]) [address] [place], [address], 12/25/2024 10:11:13 12/25/19 25 12/25/2024 VITAM IN D, 25-HY DROXY vitamin D, 25-hydroxy 32.7 NG/mL 30.0-1 00.0 Vitam in D defic iency has been defin ed by the Insti tute of Medic ine and an Endoc rine Socie ty pract ice guide line as a level of serum 25-OH vitam in D less than 20 ng/mL (1,2) . The Endoc rine Socie ty went on to furth er defin e vitam in D insuf ficie ncy as a level betwe en 21 and 29 ng/mL (2). 1. IOM (Inst itute of Medic ine). 2010. Dieta ry refer ence intak es for calci um and D. Angela wei DC: [facility] . 2. Kristen rea MF, Arnol ryder [place], Rubens off-F michelle i SMALLS, et al. Evalu ation , treat ment, and preve ntion of vitam in D defic iency : an Endoc rine Socie ty clini mohit pract ice guide line. JCEM. 2010; 96(7) :1911 -30. Not Available [facility] ([facility]) [address] [place], [address], 12/25/2024 10:11:13 12/25/19 25 12/25/2024 MAGNE SIUM magnesium 1.7 mg/dL 1.6-2. 3 normal Not Available [facility] ([facility]) [address] [place], [address], 12/25/2024 10:11:14 12/26/19 25 12/29/2024 URINE CULTU REDISHA NE urine culture, routine FINAL REPORT abnormal Not Available [facility] ([facility]) [address] [place], [address], 12/29/2024 18:09:28 12/26/1912/29/2024 URINE CULTU REDISHA NE result 1 ESCHER ICHIA COLI abnormal Cefaz lamberto with an LORENA <=16 predi cts susce ptibi lity to the oral agent s cefac tracy, cefdi el, cefpo doxim e, cefpr ozil, cefur oxime , cepha lexin , and lorac arbef when used for thera py of uncom plica arely urina ry tract infec tions due to E. coli, Klebs iella pneum oniae , and Prote us mirab ilis. Great er than 100,0 00 colon y formi ng units per mL Not Available [facility] ([facility]) [address] [facility], [place], [address], 12/29/2024 18:09:28 12/26/19 25 12/29/2024 URINE CULTU RE, ROUTI NE antimicrobia l susceptibili ty COMMEN T S = Susce ptibl e; I = Inter media te; R = Resis tant P = Posit eleanor; N = Negat eleanor MICS are expre ssed in micro grams per mL Antib iotic RSLT# 1 RSLT# 2 RSLT# 3 RSLT# 4 Amoxi cilli n/Cla vulan ic Acid S Ampic illin R Cefaz lamberto S Cefep andrea S Cefox itin R Cefpo doxim e S Ceftr iaxon e S Cipro floxa aletha R Ertap enem S Genta micin S Levof loxac in R Merop enem S Nitro furan toin S Piper acill in/Ta zobac galan S Tetra cycli ne S Tobra mycin S Trime thopr im/Snow lfa S Not Available [facility] ([facility]) [address] [facility], [place], [address], 12/29/2024 18:09:28 12/26/19 25 12/25/2024 urina lysis , dipst ick Leukocytes (reference range) small Not Available [facility] [address] [facility] [address], [place], [address], 12/25/2024 13:19:32 12/26/19 25 12/25/2024 urina lysis , dipst ick Nitrite (reference range:) positi ve Not Available [facility] [address] [facility] [address], [place], [address], 12/25/2024 13:19:32 12/26/19 25 12/25/2024 urina lysis , dipst ick Urobilinogen (reference range) 0.2 Not Available [facility] [address], [place], [address], 12/25/2024 13:19:32 12/26/19 25 12/25/2024 urina lysis , dipst ick Protein (reference range) negati ve Not Available [facility] [address], [place], [address], 12/25/2024 13:19:32 12/26/19 25 12/25/2024 urina lysis , dipst ick pH (reference range 5-8.5) 5.5 Not Available [facility] [address], [place], [address], 12/25/2024 13:19:32 12/26/19 25 12/25/2024 urina lysis , dipst ick Blood (reference range:) hemoly zed: Trace Not Available [facility] [address], [place], [address], 12/25/2024 13:19:32 12/26/19 25 12/25/2024 urina lysis , dipst ick Specific [place] (reference range) 1.020 Not Available [facility] [address] [facility] [address], [place], [address], 12/25/2024 13:19:32 12/26/19 25 12/25/2024 urina lysis , dipst ick Ketone (reference range) negati ve Not Available [facility] [address] [facility] [address], [place], [address], 12/25/2024 13:19:32 12/26/19 25 12/25/2024 urina lysis , dipst ick Bilirubin (reference range) negati ve Not Available [facility] [address], [place], [address], 12/25/2024 13:19:32 12/26/19 25 12/25/2024 urina lysis , dipst ick Glucose (reference range) negati ve Not Available [facility] [address], [place], [address], 12/25/2024 13:19:32 12/26/19 25 12/25/2024 urina lysis , dipst ick Color (reference range: yellow-brown ) Yellow Not Available [facility] [address] [facility] [address], [place], [address], 12/25/2024 13:19:32 Result Notes None recorded. Problems Name Problem SNOMED Code Status Onset Date Resolution Date Notes Provider Name and Address Organization Details Recorded Time Requires vaccination 686341109 Active Not Available [facility] 21:54:52 Vitamin D deficiency 29932297 Active Not Available [facility] 21:54:52 Pain of wrist region 92085151 Active Not Available [facility] 21:54:52 Essential hypertension 03926937 Active Not Available [facility] 21:54:52 Cardiac defibrillato r in situ 781017406 Active Not Available [facility] 21:54:52 Osteoporosis 73069686 Active Not Available [facility] 21:54:52 Incontinence 44545784 Active Not Available [facility] 21:54:52 Allergic rhinitis 42025840 Active Not Available [facility] 21:54:52 Low density lipoprotein cholesterol above reference range 021353883 Active Not Available [facility] 21:54:52 Automatic implantable cardiac defibrillato r in situ 379034827 Active Not Available [facility] 3 21:54:52 Chronic rhinitis 05431891 Active Not Available [facility] 21:54:53 Scalp itchy 254057412 Active Not Available [facility] 21:54:52 Sinusitis 42699382 Active Not Available [facility] 21:54:52 Disorder of carotid artery 647347667 Active Not Available [facility] 21:54:52 Pulmonary emphysema 62167691 Active Not Available [facility] 21:54:53 Fatigue 49899364 Active Not Available [facility] 3 21:54:52 Cardiomyopat hy 46570567 Active Not Available [facility] 3 21:54:52 Uncomplicate d mild persistent asthma 089697394 Active Not Available [facility] 3 21:54:52 Dyspnea on exertion 87534052 Active Not Available [facility] 3 21:54:52 Left bundle branch block 41376678 Active Not Available [facility] 3 21:54:52 Left heart failure 73377985 Active Not Available [facility] 3 21:54:52 Computed tomography result abnormal 355796310 Active Not Available [facility] 3 21:54:52 Post-acute COVID-19 1655879275 Active 2021 Not Available [facility] 3 21:54:52 Cough variant asthma 755409636 Active 2021 Not Available [facility] 21:54:52 Hyperlipidem ia 02826584 Active 2022 Not Available [facility] 3 21:54:52 Chronic obstructive pulmonary disease 39396389 Active 2022 Not Available [facility] 21:54:52 Severe persistent asthma 758482155 Active 2022 Not Available [facility] 3 21:54:52 Chest pain 80791190 Active 2023 Raza Foreman MD [address] , [place], [address] , [facility] [place] 4 14:32:07 Problem Notes None recorded. Procedures Surgical History Date Name Laterality Status Provider Name and Address Organization Details Recorded Time 08/20/19 25 Date of Last Colonoscopy completed Michelle ONEAL ROYAL [facility] & [place] 08/20/2024 12:42:05 07/15/20 23 Most Recent Bone Density completed Nolvia ONEAL - LPNT [facility] & [place] 05/16/2024 10:26:32 07/15/20 23 Most Recent Mammogram completed Nolvia ONEAL - LPNT [facility] & [place] 05/16/2024 10:26:43 01/28/20 18 Feces-based colorectal cancer DNA screening completed Nolvia ONEAL [facility] & [place] 05/16/2024 10:35:06 07/17/20 17 cardiac pacemaker procedure completed Debra Calvin [facility]NT [facility] & [place] 06/07/2023 08:48:14 08/05/19 17 Pacemaker/Defib [facility]illator [facility] [place] 07/15/2024 11:18:06 cataract surgery completed [facility] & [place] 01/22/2023 13:01:06 excision of lesion of skin completed [facility] [place] 05/16/2024 10:28:08 Imaging Results None recorded. Procedure Notes None recorded. 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 Serial Number Lot Number Status Provider Name and Address Organization Details Recorded Time ICD (implantab le cardiovert er-defibri llator) FDA Y Nolvia gilbert, J[place] - LPNT [facility] & [place] 05/16/2024 10:25:43 Allergies Allergen ID Allergen Name Allergen Category Reaction Reaction Severity Criticality Documentation Date Start Date Code Code System Note Provider Name and Address Organization Details Recorded Time 922876 Zithromax medicatio n vomiting Not available Not available 06/07/2023 66491 4 RxNorm Debra gilbert, J[place] - [facility]NT [facility] & [place] 08:47:17 310337 onion extract food,medi cation hives Not available Not available 05/16/2024 76061 69 RxNorm criti calit y mediu m Nolvia Lozano null, [place] - [facility] & [place] 4 10:28:46 28743 azithromy aletha medicatio n rash mild low 06/06/2022 90981 RxNorm Nolvia Lozano null, [place] - [facility] & [place] 4 10:28:22 61110 umeclidin ium bromide medicatio n other mild Not available 06/06/2022 24782 12 RxNorm Not Available [facility] 2 08:38:33 30776 doxycycli ne Not available palpitati ons mild Not available 06/06/2022 3640 RxNorm Not Available [facility] 3 15:19:34 Medications Name Sig Start Date [...] Updated DateTime 5 160.02 cm 25 kg/m2 19830.5 2 g 97.1 [degF] 94 % 94 % 65 /min 124/72 mm[Hg] Michelle Crawford [facility] & [place] 5 08:11:54 Date Recorded Body height Body mass index (BMI) Body weight Oxygen saturation Oxygen saturation in Arterial blood by Pulse oximetry Heart rate Systolic And Diastolic Provider Name and Address Organization Details Last Updated DateTime 5 160.02 cm 25.7 kg/m2 90926.8 9 g 92 % 92 % 75 /min 120/70 mm[Hg] Joanna ONEAL [facility] & [place] 5 14:01:21 Date Recorded Body height Body mass index (BMI) Body weight Oxygen saturation Oxygen saturation in Arterial blood by Pulse oximetry Heart rate Systolic And Diastolic Provider Name and Address Organization Details Last Updated DateTime 4 160.02 cm 26.2 kg/m2 57660.6 7 g 94 % 94 % 74 /min 152/90 mm[Hg] Joanna ONEAL [facility] & [place] 4 13:50:11 Social History Question Answer Notes LastModified by Organizat ion Details LastModified Time Tobacco Smoking Status Never Smoker Soumya gilbert JM [facility] & [place] 06/06/2022 11:26:08 Do You Have An Advance Directive? Yes [email or web address] Information not available 07/15/2024 Are You Blind Or Do You Have Difficulty Seeing? No [email or web address] Information not available 07/15/2024 What Is Your Level Of Caffeine Consumption? Moderate [email or web address] Information not available 05/25/2024 In General, Would You Say Your Health Is Fair [email or web address] Information not available 06/23/2024 How Would You Describe The Condition Of Your Mouth And Teeth including False Teeth Or Dentures? Poor [email or web address] Information not available 06/23/2024 Each Night, How Many Hours Of Sleep Do You Usually Get? 6-7 Hours [email or web address] Information not available 06/23/2024 Do You Snore Or Has Anyone Told You That You Snore? Yes [email or web address] Information not available 06/23/2024 In The Past 7 Days, How Often Have You [place] Sleepy During The Daytime? Sometimes [email or web address] Information not available 06/23/2024 Do You Have Chronic Pain? Yes [email or web address] Information not available 06/23/2024 If Yes, Location Of Pain Hips, Back [email or web address] Information not available 06/23/2024 In The Past 7 Days, How Would You Rate Your Pain? Moderate Pain(4-6) Information not available 06/23/2024 Are You In A Pain Management Program? Yes [email or web address] Information not available 06/23/2024 Do You Take Opioids For Your Pain? No [email or web address] Information not available 06/23/2024 How Often Is Stress A Problem For You In Handling Such Things As: Your Health, Your Finances, Your Family And Social Relationships, Your Work? Never Or Rarely [email or web address] Information not available 06/23/2024 How Often Do You Get The Social And Emotional Support You Need: Always [email or web address] Information not available 06/23/2024 In The Past 7 Days, Did You Need Help From Others To Take Care Of Things Such As Laundry And Housekeep- Ing, Banking, Shopping, Using The Telephone, Food Preparation, Transportation, Or Taking Your Own Medications? No [email or web address] Information not available 06/23/2024 Do You Live Alone? No [email or web address] Information not available 06/23/2024 Does Your Home Have Any Fall Risks (un-level Floors, Unfastened Rugs, Poor Lighting, Etc)? No [email or web address] Information not available 06/23/2024 What Was The Date Of Your Most Recent Tobacco Screening? 07/15/2024 [email or web address] Information not available 07/15/2024 Are You Passively Exposed To Smoke? No [email or web address] Information not available 07/15/2024 Has Tobacco Cessation Counseling Been Provided? No [email or web address] Information not available 06/06/2022 Sex: Unknown Functional Status Question Answer Note LastModified by Organizat ion Details LastModified Time Do you use any illicit or recreational drugs? No [email or web address] Information not available 06/06/2022 Do you or have you ever used any other forms of tobacco or nicotine? No [email or web address] Information not available 06/06/2022 What is your level of alcohol consumption? None [email or web address] Information not available 06/06/2022 What is your exercise level? Moderate [email or web address] Information not available 07/15/2024 Mental Status Question Answer Note LastModified by Organization D etails LastModified Time Do you feel stressed (tense, restless, nervous, or anxious, or unable to sleep at night)? [id number] [email or web address] Information not available 07/15/2024 Family History Relationship Description Onset Age of this Age Resolved Age Notes LastModified by Organization Details LastModified Time Father Myocardial infarction [email or web address] Not available 10/2022 08:48:35 Father Heart failure [email or web address] Not available 2023 11:16:29 Mother Malignant neoplasm of lung [email or web address] Not available 2023 11:16:29 Mother Essential hypertension [email or web address] Not available 06/2024 11:16:29 Mother Myocardial infarction [email or web address] Not available 10/2022 08:49:33 Mother Hyperlipidem ia [email or web address] Not available 2023 11:16:29 Medical History Condition Response Allergies/Hayfever Y Heart Problems Y Other Y Vision or Eye Problems Y Arthritis Y Cancer Y Asthma Y COPD Y High Cholesterol Y Heart Disease Y [...] quadrivalent, PF 2 completed Ivy Pathak MD [address] [facility], [place], [address], [facility] - [facility] & [place] 07/12/2022 14:03:53 zoster recombinant 2 completed Not Available [facility] 07/17/2023 21:54:53 Influenza, injectable,quadriva lent, preservative free, pediatric 9 completed Not Available [facility] 07/17/2023 21:54:53 Influenza, split virus, quadrivalent, PF 0 completed Not Available [facility] 07/17/2023 21:54:53 Influenza, split virus, quadrivalent, PF 1 completed Not Available [facility] 07/17/2023 21:54:53 Pneumococcal conjugate PCV 13 9 completed Not Available [facility] 07/17/2023 21:54:53 pneumococcal polysaccharide PPV23 0 completed Not Available [facility] 07/17/2023 21:54:53 zoster recombinant 1 completed Not Available [facility] 07/17/2023 21:54:53 Influenza, MDCK, quadrivalent, preservative 8 completed Not Available [facility] 07/17/2023 21:54:53 Influenza, split virus, trivalent, PF 6 completed Not Available [facility] 07/17/2023 21:54:53 Influenza, adjuvanted, trivalent, PF 7 completed [facility] Available [facility] 07/17/2023 21:54:53 COVID-19, mRNA, LNP-S, PF, 100 mcg/0.5mL dose or 50 mcg/0.25mL dose 1 completed Not Available [facility] 07/17/2023 21:54:53 COVID-19, mRNA, LNP-S, PF, 100 mcg/0.5mL dose or 50 mcg/0.25mL dose 1 completed Not Available [facility] 07/17/2023 21:54:53 COVID-19, mRNA, LNP-S, PF, 100 mcg/0.5mL dose or 50 mcg/0.25mL dose 1 completed Not Available [facility] 07/17/2023 21:54:53 Influenza, adjuvanted, quadrivalent, PF 3 completed Ivy Pathak MD [address] [facility], [place], [address] [place] - LPNT [facility] & [place] 05/27/2023 10:54:09 RSV, recombinant, protein subunit RSVpreF, adjuvant reconstituted, 0.5 mL, PF 4 completed Michelle gilbert [place] - LP[facility] & [place] 06/23/2024 09:32:28 COVID-19, mRNA, LNP-S, PF, areli-sucrose, 30 mcg/0.3 mL 4 completed Michelle Crawford [facility], [place] - [facility] & [place] 06/23/2024 09:32:28 Influenza, high-dose, trivalent, PF 4 completed Michelle gilbert, [place] - LP[facility] & [place] 06/23/2024 09:32:28 Past Encounters Encounter ID Performer Location Encounter Start Date Encounter Closed Date Diagnosis/Indication Diagnosis SNOMED-CT Code Diagnosis ICD10 Code Diagnosis Note [id number] Tamiko Elliott MD [address] [place] [address] 06/06/2022 11:03:29 06/06/2022 11:44:44 Viral syndrome 878234190 B34.9 Recurrent upper respiratory tract infection 484915932 J06.9 [id number] Ivy Pathak MD [facility] [address] [facility] [place] [address] 07/12/2022 12:54:02 07/12/2022 13:18:52 Post-acute COVID-19 6327046714 U09.9 Patient having post COVID-19 cough that is not improving with the OTC cough suppressan ts so will start her on Breo 100 to use regularly. Patient to use her Rosie on a p.r.n. basis. Patient to call if there is any new symptoms. Dyspnea on exertion 6084 5006 R06.09 Patient recommende d to continue to exercise as tolerated and use her Rosie on a p.r.n. basis. Will send her a new refills for her Rosie. Administra tion of influenza vaccine 81580468 Z23 Will administer flu vaccine in the office today. [id number] Tamiko Elliott MD [facility] [address] [place] [address] 08/01/2022 13:00:14 08/01/2022 13:53:16 Respiratory tract congestion and cough 330882907 R05.9 Rib pain 044074322 R07.8 1 [id number] Raza Foreman MD [facility] [address] [place] [address] 08/20/2022 14:30:40 08/20/2022 15:14:53 Cardiomyopathy 71194991 I42.9 Non-ischem ic cardiomyop athy. Clinically well compensate d and euvolemic. Continue current heart failure regimen Sodium restrict to less than 2 g a day, fluid restrict to less than 64 oz /2 L a day Daily weights Essential hypertension 95375122 I10 Continue current medication . Keep log Low-salt diet < 2 gm Na/day, Regular exercise Weight loss Hyperlipidemia 81467872 E78.5 Continue statin Low fat/carboh ydrate diet Increase exercise Lose weight [id number] Ivy Pathak MD [facility] [address] [place] [address] 01/22/2023 12:48:26 01/22/2023 13:08:52 Post-acute COVID-19 [id number] U09.9 Patient to use her Rosie on a p.r.n. basis.Linda ent to call if there is any new symptoms. Dyspnea on exertion 6084 5006 R06.09 Patient recommende d to continue to exercise as tolerated and use her Rosie on a p.r.n. basis. Will send her a new refills for her Rosie. Chronic ob structive pulmonary disease 41043615 J44.9 Spirometry done in the office today showed evidence of obstructio n with decrease in FEV1 down to 41% predicted so will check full PFTs with DLCO for better characteri zation and to adjust treatment accordingl y. Since patient unable to tolerate Breo and does not want to try it again then will deescalate treatment down to Arnuity 100 and adjust according to the full PFTs with DLCO if needed. Patient instructed to use her Rosie more liberally p.r.n. and to call if there is any worsening of her symptoms. [id number] Tamiko Elliott MD [facility] [address] [place] [address] 03/12/2023 12:50:51 03/12/2023 15:16:45 Pain of left shoulder joint [id number] 9310921 M25.512 Pain of ri ght shoulder joint [id number] 7658103 M25.511 Pain of bi lateral hip joints 3263287161 6674535 M25.551 M25.552 Kyphosis d eformity of spine 309940552 M40.209 Chest pain 14174377 R07. 9 Muscle pain 77837055 M79 .10 Osteoporosis 94681071 M8 1.0 Pain of mu ltiple joints 54610293 M25.50 [id number] Raza Foreman MD [facility] [address] [place] [address] 03/18/2023 15:29:16 03/18/2023 16:11:34 Cardiomyopathy 40504370 I42.9 Non-ischem ic cardiomyop athy.Clini omer well compensate d and euvolemic. 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 [address] [facility] [place] [address] 05/27/2023 10:14:01 05/27/2023 10:42:51 Administration of influenza vaccine 23108791 Z23 Will administer flu vaccine in the office today. Dyspnea on exertion 6084 5006 R06.09 Patient recommende d to continue to exercise as tolerated and use her Rosie on a p.r.n. basis. Severe per sistent asthma 435476934 J45.50 Since patient unable to tolerate Breo and does not want to try it again, and since patient symptoms are worsening then will increase her medication /escalate to Arnuity 200 daily.Linda ent instructed to use her Rosie more liberally p.r.n. and to call if there is any worsening of her symptoms. Immunization advised [id number] Z71.9 Patient advised to receive her RSV vaccine and will send an order to her pharmacy.P lynda also recommende d to receive her COVID-19 vaccinatio n. [id number] Tamiko Elliott MD [address] [place] [address] 06/18/2023 14:29:17 06/18/2023 15:26:53 Adult health examination 957938496 Z00.00 Screening mammography 24 428918 Z12.31 Osteoporosis 42006682 M8 1.0 Hyperlipidemia 55756836 E78.5 Essential hypertension 43281757 I10 Arthritis of acromioclavicular joint 214335845 M13.819 trial of voltaren [id number] Tamiko Elliott MD [address] [place] [address] 07/15/2023 11:36:34 07/15/2023 11:49:54 Essential hypertension 50841752 I10 [id number] Ivy Pathak MD [facility] [address] [facility] [place] [address] 08/27/2023 10:34:13 08/27/2023 10:54:35 Dyspnea on exertion 42198069 R06.09 Patient recommende d to continue to exercise as tolerated and use her Rosie on a p.r.n. basis. Severe per sistent asthma 657968530 J45.50 Due to the worsening of patient's symptoms then will escalate treatment from Arnuity in to Symbicort 160.Patien t instructed to use her Rosie more liberally p.r.n. and to call if there is any worsening of her symptoms. Immunization advised [id number] [id number] Z71.9 Patient recommende d to receive her COVID-19 vaccinatio n. Patient is up-to-date on her flu and RSV vaccine. [id number] Raza Foreman MD [facility] [address] [facility] [address] [place] [address] 09/23/2023 12:47:19 09/23/2023 13:46:19 Cardiomyopathy 90954541 I42.9 Non-ischem ic cardiomyop athy.Discu ssed addtion of OGOU4j---i he wishes to hold off for now due to costs- Jardiance is the cheaper one for her .Clinicall y well compensate d and euvolemic. 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 9344554265 9104 Z95.810 device interrogat ion to be scheduled [id number] Raza Foreman MD [facility] [address] [facility] [address] [place] [address] 10/21/2023 14:21:41 10/21/2023 16:04:41 Biventricular automatic implantable cardioverter defibrillator in situ 8101006291 9104 Z95.810 device interrogat ied today [id number] Tamiko Elliott MD [facility] [place] [address] 06/23/2024 09:17:09 06/23/2024 10:28:23 Adult health examination 563968932 Z00.00 Screening for malignant neoplasm of colon 808508938 Z12.11 Prediabetes 977115755 R7 3.03 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 9 she reports exertional cp. We talked about options including stress test versus heart catheteriz ation I have discussion with the patient we decided to proceed with stress test. Dyspnea on exertion 6084 5006 R06.09 Echo to evaluate EF, diastolic function, valves and pulmonary pressures [id number] [facility] [address] [place] [address] 07/10/2024 08:46:24 07/10/2024 09:30:18 Prediabetes 253669708 R73.03 [id number] [facility] [address] [place] [address] 07/15/2024 11:16:01 07/15/2024 12:17:43 Abnormal feces 628762777 R19.5 + cologuard result, discussed at length with patient who is agreeable to colonoscop y. She had a normal cologuard in approx 2020. She denies blood in the stool, concerning symptoms .She has not had a colonoscop y in the past. [id number] Raza Foreman MD [facility] [address] [place] [address] 07/20/2024 13:41:47 07/20/2024 14:18:45 Cardiomyopathy 08537969 I42.9 Non-ischem ic cardiomyop athy. Now with normal LVEFContin ue current heart failure regimenSod ium restrict to less than 2 g a day, fluid restrict to less than 64 oz /2 L a dayDaily weightsDis cussed addtion of JCHQ3r---n he wishes to hold off for now due to costs- Jardiance is the cheaper one for her . 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 Vitamin D deficiency 347 88587 E55.9 Fatigue 66013754 R53.82 [id number] Tamiko Elliott MD [facility] [address] [place] [address] 12/25/2024 13:18:29 12/25/2024 16:06:51 Increased frequency of urination 450493447 R35.0 patient unable to leave sample, sent home with supplies. [id number] Raza Foreman MD [facility] [address] [place] [address] 01/18/2025 13:48:51 01/18/2025 14:26:32 Cardiomyopathy 31109204 I42.9 Non-ischem ic cardiomyop athy. Now with normal LVEFstatus post Biotronik Bi V ICDContinu e current heart failure regimenSod ium restrict to less than 2 g a day, fluid restrict to less than 64 oz /2 L a dayDaily weightsDis cussed addtion of KXUP0p---t he wishes to hold off for now due to costs- Jardiance is the cheaper one for her . 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 [id number] 9104 Z95.810 device interrogat ion Q.6 months Health Concerns Section Related Observation LastModified by Organization Detai ls LastModified Time None Recorded Concern Status LastModified by Organization Details LastModified Time None Recorded Advance Directives Directive Y: Payers Insurance Date Sequence Insurance Name Policy Number Policy Mueller Covered Member ID Mueller Member ID Guarantor Name 01/10/2022 [employer] (MEDICARE REPLACEMENT/A DVANTAGE - PPO) Liz Barkers [id number] Liztomy Briggsimes 01/10/2022 1 [employer] (PPO) Liz Davidson [id number] Liztomy Briggsimes 02/22/2025 1 [employer] (MEDICARE REPLACEMENT/A DVANTAGE - PPO) Liz Barkers [id number] Liz Davidson Notes Date Note Type Note Provider Name and Address Organization Details Recorded Time 07/20/2024 text/html 79 F for fu NICM sp BI- IV ICD Biotronik 07/17/17 Dr Arthur, has remote monitor in place with .PCP: Dr Lugo and stress done, these test results discussed with the patient. Her LVEF has now normalised.Her cp symptoms have resolvedBlood pressure is running high here today, but generally is well controlled on review of records and on review of home BP logNo chest pain, shortness of breath, PND, orthopnea, peripheral edema, palpitations, presyncope, syncope+ nonischemic cardiomyopathy status post Bi V ICD Biotronik -RV paced 99% bi V paced 100%. No arrhythmias. No programming changes made. Please see scanned report for further specifics.+Hypertensi on- well controlled+hyperlipid emia -on statin Nuc stress 06/2024Normal nuclear stress test with no ischemia.Calculated EF of 50%. Echo 06/2024Normal LV size with normal function. The ejection fraction is 60-65%.Left ventricular filling cannot be assessed due to tachycardia.There is mild aortic regurgitation.Compare d to echo 2017, EF was 30% Nuc stress . No ischemia noted on nuclear stress images.2. Calculated ejection fraction of 46%.3. Stress test from 2017 showed ejection fraction of 22% with no ischemia.EKG 03/26/22: Sinus rhythm, V paced rhythm rate of 86Echo 02/26/17Normal LV size . 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 Raza Foreman MD [address], [place], [address], [facility] - [place] & [place] 07/20/2024 14:52:10 12/24/2024 text/html SHe is here for f/uShe [...] with this. She sees Dr. Lara in [place]. Tamiko Elliott MD [address], [place], [address], [facility] & [place] 12/24/2024 12:42:46 01/18/2025 text/html 79 F for fu NICM [...] Biotronik - now with normalization of LV function+Hypertension - well controlled+hyperlipid emia -on statin Nuc stress 06/2024Normal nuclear stress test with no ischemia.Calculated EF of 50%. Echo 06/2024Normal LV size with normal function. The ejection fraction is 60-65%.Left ventricular filling cannot be assessed due to tachycardia.There is mild aortic regurgitation.Compare d to echo 2017, EF was 30% Nuc stress . No ischemia noted on nuclear stress images.2. Calculated ejection fraction of 46%.3. 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 Raza Foreman MD [address], [place], [address], [facility] & [place] 01/21/2025 17:06:25 OBGyn Episode No OBEpisode recorded.
[2025-02-22 12:04] VITALS: BP 121/68; PULSE 84; RESP 18; O2SAT 95; BMI 24.7
--- NOTE | 2025-02-22 12:18 | EXP.PAIN.OV ---
HPI Data of Consult Patient: new to practice Consult date: 02/22/25 Requesting Physician: Gabriela Reyes APRN Primary Care Provider: Referral Provider, Reason for consult: Low back pain, bilateral hip pain, groin pain History of present illness: Ms. Davidson is a 79 year old female who presents today as a new patient. She is a referral from Dr. Dunbar's office. She rates her pain today an 8 out of 10. Patient states she has had chronic low back pain since 1996 and at that time did injections such as epidurals and it did improve and did not have any additional issues. Patient states then over the last year and 1/2 to 2 years she started having increased pain primarily in her bilateral hips and groin and it has progressively worsened. Patient has tried oral medication, heat and ice, topicals, physical therapy and continued at home exercising and stretching for longer than 12 weeks. Patient is very active and used to be able to hike a lot along with doing at home Pilates 3-4 times per week. Patient did see the medical center orthopedics who did try multiple injections with only minimal changes. She is not a surgical candidate currently and was sent here to see about additional options. Patient does have a heart history. Patient is interested in any help we may be able to provide. Patient does state the pain is interfering with her ability perform activities of daily living such as cooking and cleaning. She describes it as an aching, throbbing sensation with occasional spasms. Patient states the pain is much worse her Saleem has been reviewed and is appropriate. When she is up walking moving and that it is primarily in her groin. Pain at rest (0-10 scale): 8 Has patient had previous pain injection?: No Conservative treatment options previously tried: Home exercise plan (Longer than 12 weeks) and Physical Therapy (Longer than 6 weeks) cc:: CC: Gabriela Reyes APRN [facility] Disclaimer: The information contained in this section may have been updated after the patient was seen, as this information can be updated by other users. Medical History Asthma-chronic obstructive pulmonary disease overlap syndrome Cataract Arthritis Skin cancer SKIN CANCER REMOVED Dermatitis Ear infection Pacemaker History of COVID-19 Bronchitis Sinus headache Allergies History of cataract Surgical History History of excision of lesion Family History Other No significant family history Social History (Updated 02/22/25 @ 12:05 by Leda Carlson RN) Smoking Status: Never smoker alcohol intake: never current occupational status: retired Travel in the last 8 weeks?: None household members: none housing: house marital status: single education level: college service: No special mari needs: No agree to transfusion: No do you feel safe at home: Yes victim of physical abuse: No victim of emotional abuse: No victim of sexual abuse: No would you like helpful sources: No Contact w/someone who lives/traveled outside [place] past 30 days?: No Exposure to someone with infectious disease in past 14 days?: No Do you have a fever (greater than 100.4 F or 38 C)?: No Have you tested positive for COVID-19?: No Exposed to someone with COVID-19 in past 14 days?: No Do you have a sore throat?: No Do you have a cough?: No Do you have any weakness?: No Are you experiencing any nausea/vomitting?: No Do you have any diarrhea?: No Are you experiencing any unusual bleeding?: No Do you have any muscle aches/pain?: No Do you have any abdominal pain?: No Are you experiencing loss of taste or smell?: No Review of Systems Review of Systems Review of systems:: pertinent systems reviewed and negative unless documented below Review of systems (narrative): Review of Systems: General: No recent weight changes, no fever, no sleep disturbances Respiratory: No cough, no shortness of air, no recurring pulmonary infections Cardiovascular/peripheral vascular: No chest pain, no palpitations, no edema, no shortness of breath Gastrointestinal: No new onset incontinence, normal bowel movements reported Genitourinary: No new onset incontinence Musculoskeletal: Bilateral hip pain, low back pain, groin pain Psychiatric: [Normal mood/affect] Neurological: [Denies weakness in extremities], [denies balance issues] Meds Home Medications and Allergies Home Medications ?Medication ?Instructions ?Recorded ?Confirmed ?Type albuterol 90 mcg/actuation aerosol 90 mcg inhalation DAILY Asthma 10/02/22 09/11/24 History inhaler carvedilol 6.25 mg tablet (Coreg) 6.25 mg PO BID bp 10/02/22 09/11/24 History sacubitril 49 mg-valsartan 51 mg 1 tab PO BID . 10/02/22 09/11/24 History tablet (Entresto) fluticasone propionate 50 2 spray intranasal DAILY 90 days 06/12/24 09/11/24 Rx mcg/actuation nasal #16 grams spray,suspension (Flonase Allergy Relief) ipratropium 0.5 mg-albuterol 3 mg 3 ml inhalation Q6H PRN shortness 06/12/24 09/11/24 Rx (2.5 mg base)/3 mL nebulization of breath or wheezing #90 mL soln amitriptyline 10 mg tablet 10 mg PO DAILY 09/11/24 09/11/24 History atorvastatin 20 mg tablet 20 mg PO DAILY 09/11/24 09/11/24 History budesonide 160 mcg-glycopyr 9 2 inh inhalation BID 90 days #10.7 01/26/25 Rx mcg-formot 4.8 mcg/actuation HFA grams inhaler (Breztri Aerosphere) baclofen 5 mg tablet 5 mg PO TID #42 tabs 02/22/25 Rx New Prescriptions to Start Prescriptions: baclofen Gabriela Reyes Allergies Allergy/AdvReac Type Severity Reaction Status Date / Time azithromycin AdvReac Intermediate Hives Verified 09/11/24 11:35 Objective Narrative: Physical Exam: General: Alert and oriented x3, no acute distress, pleasant and cooperative Lungs: Respirations even and unlabored, symmetrical chest expansion Eyes: PERRL Musculoskeletal: Flexion and extension of bilateral hips somewhat guarded secondary to pain, [antalgic gait noted] Neurological: Speech clear, no gross sensory deficit Assessment and Plan *Assessment and plan (1) Bilateral hip pain: Status: Acute Category: Medical Code(s): M25.551 - Pain in right hip; M25.552 - Pain in left hip Plan Patient is experiencing worsening pain in her bilateral hips with limited range of motion. Patient does have more increased pain when she is up walking and it does radiate into her groin bilaterally. Patient has already tried multiple injections including SI injections, epidurals and facet injections. I did discuss with patient that I do believe she would benefit from intra-articular hip injections. Patient denies ever trying this in the past. Patient's symptoms are consistent with possible osteoarthritis and degenerative changes of the hips. Patient has tried and failed conservative therapy including oral medication, heat and ice, topicals, previous physical therapy and continued at home stretching exercise for longer than 12 weeks. Patient has had this pain longer than a year. Patient is very active and had been doing at home exercise including Pilates 3-4 times per week. Patient was given the risk and benefits of these injections and she would like to proceed forward with this plan of care. I will order the patient a compounded cream and have her scheduled for bilateral intra-articular hip injections under fluoroscopy. I will also send in a 2-week dose of baclofen 5 mg 3 times daily as needed for her spasms. We will follow-up with her after these injections. Patient has been instructed to contact the clinic with any concerns before the next appointment. Dr. Angulo has reviewed this note and agrees with this plan of care. This note was dictated using voice recognition software and make contain errors or omissions. All injections are used with Lidocaine, Bupivacaine and dexamethasone. Occasionally urine drug screen is needed to verify patient's compliance with our office pain contract. This is ordered based off specific treatments related to chronic pain with the potential to abuse certain medications.
== END 2025-02-22 23:59 | disposition home or self-care (01) ==
PROVIDERS: Visit Provider Nurse Practitioner Family
DX: M25.551 Pain in right hip (principal); M25.552 Pain in left hip
CPT/HCPCS: 99202; G0463

== ENCOUNTER 2025-03-16 10:29 | Day surgery (SDC) | payer MEDICARE, SELFPAY ==
[2025-03-16 10:41] VITALS: BP 126/63; PULSE 79; RESP 18; O2SAT 95; BMI 26.4
[2025-03-16] MEDS: BUPIVACAINE 0.25% 10ML INJ 25 MG IJ (11:14)
--- NOTE | 2025-03-16 11:14 | EXP.PAIN.PRO ---
Procedure Date: 03/16/25 Time: 11:00 Anesthesiologist:: Jaun Bergman CRNA Complications:: None Pre-procedure Diagnosis:: DJD bilateral hips. Chronic bilateral hip pain. Post-procedure Diagnosis:: Same. Indications for Procedure:: Patient is a pleasant 79-year-old female who comes our clinic today for bilateral intra-articular hip injections cortisone local anesthetic. Patient describes bilateral hip pain as constant, dull, aching. She is reporting the bilateral hip pain makes ambulation difficult. She rates her pain 8/10. Procedure Details:: Details of the procedure were explained to the patient. The patient was taken to procedure room placed in the supine position. The area over the right hip was cleaned using chlorhexidine as a cleansing solution. Using fluoroscopy guidance a 3 and half inch 22-gauge spinal needle was used to access the right hip joint without difficulty. After negative aspiration 3 cc of 1% lidocaine +3 cc of 0.25% Marcaine and 10 mg of dexamethasone was injected. Needle was withdrawn. Band-Aid applied. Patient tolerated procedure without difficulty. There are no complications. Same procedure was carried out into the left hip. Plan and Disposition:: Patient was discharged without incident.
[2025-03-16 11:15] VITALS: BP 141/69; PULSE 72; RESP 18; O2SAT 91
[2025-03-16] MEDS: LIDOCAINE 1% 5ML PF VIAL 5 ML (11:19)
[2025-03-16] MEDS: DEXAMETHASONE 10MG/ML 1ML VIAL 10 MG (11:19)
[2025-03-16 11:20] VITALS: BP 128/59; PULSE 80; RESP 18; O2SAT 97
[2025-03-16 11:44] VITALS: BP 128/59; PULSE 80; RESP 18; O2SAT 97
== END 2025-03-16 11:15 | disposition home or self-care (01) ==
PROVIDERS: PCP Family Medicine; Visit Provider Nurse Anesthetist, Certified Registered
DX: M16.0 Bilateral primary osteoarthritis of hip (principal); G89.29 Other chronic pain; J44.89 Other specified chronic obstructive pulmonary disease; Z86.16 Personal history of COVID-19; Z95.0 Presence of cardiac pacemaker; Z85.828 Personal history of other malignant neoplasm of skin; Z88.1 Allergy status to other antibiotic agents; Z79.899 Other long term (current) drug therapy
CPT/HCPCS: 20610; J0665; J1100; J2003

== ENCOUNTER 2025-06-15 10:16 | Day surgery (SDC) | payer MEDICARE, SELFPAY ==
[2025-06-15 10:23] VITALS: BP 120/67; PULSE 72; RESP 16; O2SAT 90; BMI 26.5
[2025-06-15 10:31] VITALS: BP 116/38; PULSE 71; RESP 18; O2SAT 93
[2025-06-15] MEDS: LIDOCAINE 1% 5ML PF VIAL 5 ML (10:33)
[2025-06-15 10:34] VITALS: BP 116/38; PULSE 71; RESP 18; O2SAT 93
[2025-06-15] MEDS: BUPIVACAINE 0.25% 10ML INJ 25 MG IJ (10:34)
--- NOTE | 2025-06-15 10:35 | EXP.PAIN.PRO ---
Procedure Date: 06/15/25 Time: 10:15 Anesthesiologist:: John Bergman CRNA Complications:: None Pre-procedure Diagnosis:: Left sacroiliitis Post-procedure Diagnosis:: Same Indications for Procedure:: Patient is a very pleasant 80-year-old female who comes to our clinic today for a left sacroiliac joint injection of local anesthetic for diagnostic purpose. Patient describes low lumbar back pain off midline to the left. Left posterior hip pain. Difficulty transitioning from sitting to standing. Difficulty with ambulation due to the left posterior hip pain. She rates her pain 7/10. Procedure Details:: Procedure: Left sacroiliac injection under fluoroscopy Informed consent was obtained and the risk and benefits of the procedure were explained to the patient.~ The patient was taken to the procedure room and noninvasive monitors were placed including noninvasive blood pressure cuff and pulse oximeter.~ The patient was placed prone on the procedure table.~ The~ left hip was cleansed using Betadine as a cleansing solution.~ C-arm fluorosocpy was used to view the left SI joint.~ The skin and subcutaneous tissues were anesthetized using Lidocaine 1.5% and a 25-gauge needle.~ After this, a 22-gauge spinal needle was inserted under fluoroscopic guidance into the inferior aspect of the left SI joint.~ Omnipaque dye was injected and a good spread was seen throughout the joint.~ After this, approximately 5 mL of bupivacaine 0.25% was incrementally injected into the sacroiliac joint.~ The patient tolerated the procedure well with no complications.~ The patient was observed in the Pain Clinic for a period of 30-45 minutes, then discharged home neurologically intact.~ Plan and Disposition:: Patient was discharged without incident.
[2025-06-15 10:37] VITALS: BP 132/65; PULSE 71; RESP 16; O2SAT 92
== END 2025-06-15 10:37 | disposition home or self-care (01) ==
PROVIDERS: PCP Family Medicine; Visit Provider Nurse Anesthetist, Certified Registered
DX: M46.1 Sacroiliitis, not elsewhere classified (principal); J44.9 Chronic obstructive pulmonary disease, unspecified; M19.90 Unspecified osteoarthritis, unspecified site; Z85.828 Personal history of other malignant neoplasm of skin; Z79.899 Other long term (current) drug therapy; Z79.51 Long term (current) use of inhaled steroids; Z88.1 Allergy status to other antibiotic agents
CPT/HCPCS: G0260; J0665; J2003